=== PATIENT | female | born 1960 | race Caucasian/White ===

== ENCOUNTER 2016-05-18 11:55 | Emergency (ER) | payer BC ==
[~2016-05-18] VITALS: Ht 162.6 cm; Wt 84.1 kg
[~2016-05-18 11:55] MED LIST: ATV/2 PO; CHOL1TAB42 PO; CRAN1CAP15 PO; MULTTAB58 PO; TRAZ50TA35 PO
[2016-05-18 11:58] VITALS: TEMP 36.7; Ht 162.6 cm; Wt 84.1 kg
[2016-05-18] MEDS ORDERED: ALBUT/IPRATROP 3MG/0.5MG NEB 3 ML VIAL INH STA (12:19)
[2016-05-18] MEDS ORDERED: DEXT1SYP PO (12:31)
[2016-05-18] MEDS ORDERED: CLR10 PO (12:31)
[2016-05-18 12:54] LABS: BASO % 0.3 %; BASO ABS # 0.02 K/uL (0-0.2); COMPLETE YES; EOS % 1.3 %; HEMATOCRIT 43.2 % (37-47); IG% 0.1 %; LYMPH ABS # 1.68 K/uL (1.2-3.4); MEAN CELL VOLUME 88.2 fL (80-100); MEAN CORPUSCULAR HEMOGLOBIN 30.2 pg (25-34); MEAN CORPUSCULAR HGB CONC 34.3 g/dl (32-36); MEAN PLATELET VOLUME 10.8 fL (7.4-10.4); MONO % 4.6 %; NEUT % 72.7 %; PLATELET COUNT 210 K/uL (130-400)
[2016-05-18 13:06] LABS: INR 1.1 (0.9-1.1); PARTIAL THROMBOPLASTIN RATIO 1.1; PROTHROMBIN TIME (PATIENT) 11.3 SECONDS (9.0-12.0)
[2016-05-18 13:13] LABS: CALCIUM 9.1 mg/dl (8.5-10.1); CREATININE 1.5 mg/dl (0.60-1.20); POTASSIUM 3.9 mmol/L (3.5-5.1)
[2016-05-18 13:23] LABS: THYROID STIMULATING HORMONE 0.997 uIu/ml (0.300-4.500)
--- NOTE | 2016-05-18 13:46 | DIAGNOSTIC IMAGING REPORT ---
CHEST 2 VIEWS ROUTINE CLINICAL HISTORY: Chest pain and shortness of breath. COMPARISON STUDY: Chest radiograph April 29, 2015. FINDINGS: There are median sternotomy wires. There is no pneumothorax or pleural effusion. There is no consolidation to suggest pneumonia and there is no evidence of pulmonary edema. A calcified lingular granuloma is again noted. The appearance of the chest is unchanged. There are cholecystectomy clips. IMPRESSION: No acute cardiopulmonary findings. Electronically signed by: Bertin Wheat M.D. 05/18/2016 1:44 PM Dictated Date/Time: 05/18/2016 1:43 PM
--- NOTE | 2016-05-18 14:21 | EMERGENCY ROOM VISIT NOTE ---
ED Visit Note First contact with patient: 12:04 This Patient was discussed with the physician nursing home assistant administrator, Jamil Stahl PA-C. The pertinent historical and physical exam findings were confirmed. I agree with the studies ordered and with the interpretations of these studies. I agree with the disposition and care plan.
[2016-05-18] MEDS ORDERED: METH4PAK PO (15:18)
[2016-05-18] MEDS ORDERED: DOXY100C PO (15:18)
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
[2016-05-18 15:24] VITALS: BP 139/73; PULSE 72; O2SAT 99
[2016-11-01] MEDS ORDERED: VNTHFA/IN INH (12:31)
== END 2016-05-18 15:25 | disposition home or self-care (01) ==
LOC: C.EDB 11:57
DX: R07.89 Other chest pain (principal); R06.02 Shortness of breath; I42.4 Endocardial fibroelastosis; Q21.1 Atrial septal defect; Z82.49 Family history of ischemic heart disease and other diseases of the circulatory system

== ENCOUNTER 2016-11-01 19:26 | Inpatient (IN) | payer BC ==
[~2016-11-01] VITALS: Ht 162.6 cm; Wt 77.2 kg
[~2016-11-01 19:26] MED LIST changes: +CLR10 PO; +DEXT1SYP PO; +VNTHFA/IN INH
[2016-11-01 20:06] LABS: BASO % 0.3 %; BASO ABS # 0.02 K/uL (0-0.2); COMPLETE YES; EOS % 3.3 %; HEMATOCRIT 43.7 % (37-47); IG% 0.3 %; LYMPH % 28.4 %; LYMPH ABS # 2.07 K/uL (1.2-3.4); MEAN CELL VOLUME 90.9 fL (80-100); MEAN CORPUSCULAR HEMOGLOBIN 29.3 pg (25-34); MEAN CORPUSCULAR HGB CONC 32.3 g/dl (32-36); MEAN PLATELET VOLUME 10.9 fL (7.4-10.4); MONO % 6.6 %; NEUT % 61.1 %; PLATELET COUNT 202 K/uL (130-400); RED BLOOD COUNT 4.81 M/uL (4.2-5.4); WHITE BLOOD COUNT 7.29 K/uL (4.8-10.8)
--- NOTE | 2016-11-01 20:20 | DIAGNOSTIC IMAGING REPORT ---
HEAD WITHOUT CONTRAST (CT) CT DOSE: 537.48 mGy.cm HISTORY: Mental status change h/o TIAs, L sided facial/UE/LE numbness TECHNIQUE: Multiaxial CT images of the head were performed without the use of intravenous contrast. A dose lowering technique was utilized adhering to the principles of ALARA. Comparison: 11/20/2012 Findings: The paranasal sinuses and mastoid air cells are clear. The calvarium and skull base are intact. The ventricles and sulci are within normal limits. There is no mass, hematoma, midline shift, or acute infarct. Impression: No acute intracranial abnormality. The above report was generated using voice recognition software. It may contain grammatical, syntax or spelling errors. Electronically signed by: Randy Hayes M.D. 11/01/2016 8:19 PM Dictated Date/Time: 11/01/2016 8:19 PM
[2016-11-01 20:21] LABS: BUN/CREATININE RATIO 21.7 (10-20); CALCIUM 8.9 mg/dl (8.5-10.1); CREATININE 0.81 mg/dl (0.60-1.20); POTASSIUM 3.5 mmol/L (3.5-5.1)
[2016-11-01 20:22] LABS: PARTIAL THROMBOPLASTIN RATIO 1.1; PROTHROMBIN TIME (PATIENT) 11.2 SECONDS (9.0-12.0)
[2016-11-01] MEDS ORDERED: ATV2 PO (20:26)
--- NOTE | 2016-11-01 20:46 | DIAGNOSTIC IMAGING REPORT ---
CHEST ONE VIEW PORTABLE CLINICAL HISTORY: CHEST PAIN dyspnea COMPARISON STUDY: 05/18/2016 FINDINGS: The bones soft tissues and hemidiaphragms are normal. The cardiomediastinal silhouette is normal. The lungs are clear. The pulmonary vasculature is normal. Prior median sternotomy IMPRESSION: No acute process The above report was generated using voice recognition software. It may contain grammatical, syntax or spelling errors. Electronically signed by: Randy Hayes M.D. 11/01/2016 8:44 PM Dictated Date/Time: 11/01/2016 8:44 PM
[2016-11-01 21:05] LABS: LYME DISEASE AB IGG NEG (NEG); LYME DISEASE AB IGM NEG (NEG)
[2016-11-01] MEDS ORDERED: ASPIRIN 324 MG CHEW PO STA (21:07)
--- NOTE | 2016-11-01 21:55 | EMERGENCY ROOM VISIT NOTE ---
History Report prepared by Lorraine: Parth Servin Under the Supervision of: Dr. Aditya Up M.D. First contact with patient: 19:33 Chief Complaint: CHEST PAIN Stated Complaint: LT SIDE UPPER CHEST AND ARM NUMBNESS, CHEST PAIN History of Present Illness The patient is a 56 year old white female with a past medical history of multiple TIAs who presents to the ED with a cc of resolved left sided tingling beginning five hours ago. Tingling began in her left face and moves down her side. Positive nausea, "pinching" chest pain, resolved slurred speech and upper and lower back pain. Speech slur and tingling resolved after about 30 minutes. Was seen by PCP for a similar episode three weeks ago. Negative SOB. No recent trauma or falls. No smoking or drug use. No history of blood clots. Drove to [place] two weeks ago, otherwise denies recent prolonged travel. Initially attributed her symptoms to anxiety. Notes a rash to her leg, but does not recall seeing a tick or bug bite. Source of History: patient Onset: Five hours ago Position: other (left side) Symptom Intensity: 30 minutes long Quality: other (tingling) Timing: resolved Associated Symptoms: + chest pain ("pinching"), + nausea, + back pain ( upper and lower), + rash, No SOB Note: Additional symptoms: resolved speech slur. Review of Systems See HPI for pertinent positives and negatives. A total of ten systems were reviewed and were otherwise negative. Past Medical & Surgical Medical Problems: (1) Kidney stone (2) Numbness and tingling of left side of face (3) Papillary fibroelastoma (4) PFO (patent foramen ovale) Surgical Problems: (1) History of hysterectomy (2) Hx of appendectomy (3) Hx of cholecystectomy Family History FH: heart disease FHx: gallbladder disease Kidney stones Social History Smoking Status: Never Smoker Alcohol Use: none Drug Use: none Marital Status: Housing Status: lives alone Occupation Status: employed Current/Historical Medications Scheduled Lorazepam (Lorazepam), 2 MG PO HS Scheduled PRN Albuterol Hfa (Ventolin Hfa), 2-4 PUFFS INH Q6H PRN for SOB/Wheezing Allergies Coded Allergies: Penicillins (Verified Allergy, Mild, 05/18/16) Sulfa Drugs (Verified Allergy, Mild, 05/18/16) Cephalosporins (Verified Allergy, Unknown, ., 05/18/16) Ciprofloxacin (Verified Allergy, Unknown, MUSCLE SPASMS, 05/18/16) Escitalopram (Verified Allergy, Unknown, UNKNOWN, 05/18/16) Morphine (Verified Allergy, Unknown, agitation, 05/18/16) Physical Exam Vital Signs Date Time Temp Pulse Resp B/P (MAP) Pulse Ox O2 Delivery O2 Flow Rate FiO2 11/01/16 23:24 58 18 117/67 97 Room Air 11/01/16 22:39 Room Air 11/01/16 22:38 60 18 132/76 97 Room Air 11/01/16 21:27 47 18 123/74 96 Room Air 11/01/16 20:03 97 Room Air 11/01/16 20:03 97 Room Air 11/01/16 19:42 50 11/01/16 19:28 36.9 62 18 164/89 99 Room Air Physical Exam GENERAL: Awake, alert, well-appearing, NAD HENT: Normocephalic, atraumatic. EYES: Normal conjunctiva. Sclera non-icteric. NECK: Supple. No nuchal rigidity. FROM. RESPIRATORY: CTAB, no rhonchi, wheezing, crackles CARDIAC: RRR, no MRG ABDOMEN: Soft, NTND, BS+ MSK: No chest wall TTP, no LE edema NEURO: GCS 15, CN 2-12 intact, moves all 4s on command. Good finger to nose. No drift. 5/5 UE and LE strength. Good heel to mccoy. No focal motor deficit at this time. SKIN: No jaundice noted. Blanching 2 cm area of redness to the posterior left leg. No calf pain. No swelling. Medical Decision & Procedures ER Provider Diagnostic Interpretation: Radiology results as stated below per my review and radiologist interpretation: HEAD WITHOUT CONTRAST (CT) Findings: The paranasal sinuses and mastoid air cells are clear. The calvarium and skull base are intact. The ventricles and sulci are within normal limits. There is no mass, hematoma, midline shift, or acute infarct. Impression: No acute intracranial abnormality. The above report was generated using voice recognition software. It may contain grammatical, syntax or spelling errors. Electronically signed by: Randy Hayes M.D. CHEST ONE VIEW PORTABLE FINDINGS: The bones soft tissues and hemidiaphragms are normal. The cardiomediastinal silhouette is normal. The lungs are clear. The pulmonary vasculature is normal. Prior median sternotomy IMPRESSION: No acute process The above report was generated using voice recognition software. It may contain grammatical, syntax or spelling errors. Electronically signed by: Randy Hayes M.D. 11/01/2016 8:44 PM Laboratory Results 11/01/16 19:50 Red Blood Count 4.81, Mean Corpuscular Volume 90.9, Mean Corpuscular Hemoglobin 29.3, Mean Corpuscular Hemoglobin Concent 32.3, Mean Platelet Volume 10.9, Neutrophils (%) (Auto) 61.1, Lymphocytes (%) (Auto) 28.4, Monocytes (%) (Auto) 6.6, Eosinophils (%) (Auto) 3.3, Basophils (%) (Auto) 0.3, Neutrophils # (Auto) 4.46, Lymphocytes # (Auto) 2.07, Monocytes # (Auto) 0.48, Eosinophils # (Auto) 0.24, Basophils # (Auto) 0.02 11/01/16 19:50 Test 11/01/16 19:50 11/01/16 19:58 White Blood Count 7.29 K/uL (4.8-10.8) Red Blood Count 4.81 M/uL (4.2-5.4) Hemoglobin 14.1 g/dL (12.0-16.0) Hematocrit 43.7 % (37-47) Mean Corpuscular Volume 90.9 fL (80-100) Mean Corpuscular Hemoglobin 29.3 pg (25-34) Mean Corpuscular Hemoglobin Concent 32.3 g/dl (32-36) Platelet Count 202 K/uL (130-400) Mean Platelet Volume 10.9 fL (7.4-10.4) Neutrophils (%) (Auto) 61.1 % Lymphocytes (%) (Auto) 28.4 % Monocytes (%) (Auto) 6.6 % Eosinophils (%) (Auto) 3.3 % Basophils (%) (Auto) 0.3 % Neutrophils # (Auto) 4.46 K/uL (1.4-6.5) Lymphocytes # (Auto) 2.07 K/uL (1.2-3.4) Monocytes # (Auto) 0.48 K/uL (0.11-0.59) Eosinophils # (Auto) 0.24 K/uL (0-0.5) Basophils # (Auto) 0.02 K/uL (0-0.2) RDW Standard Deviation 45.2 fL (36.4-46.3) RDW Coefficient of Variation 13.6 % (11.5-14.5) Immature Granulocyte % (Auto) 0.3 % Immature Granulocyte # (Auto) 0.02 K/uL (0.00-0.02) Prothrombin Time 11.2 SECONDS (9.0-12.0) Prothromb Time International Ratio 1.0 (0.9-1.1) Activated Partial Thromboplast Time 28.0 SECONDS (21.0-31.0) Partial Thromboplastin Ratio 1.1 Anion Gap 8.0 mmol/L (3-11) Est Creatinine Clear Calc Drug Dose 80.8 ml/min Estimated GFR () 95.4 Estimated GFR (Non- 82.3 BUN/Creatinine Ratio 21.7 (10-20) Calcium Level 8.9 mg/dl (8.5-10.1) Total Bilirubin 0.7 mg/dl (0.2-1) Direct Bilirubin 0.2 mg/dl (0-0.2) Aspartate Amino Transf (AST/SGOT) 19 U/L (15-37) Alanine Aminotransferase (ALT/SGPT) 19 U/L (12-78) Alkaline Phosphatase 82 U/L (45-117) Total Protein 6.8 gm/dl (6.4-8.2) Albumin 3.7 gm/dl (3.4-5.0) Lipase 112 U/L (73-393) Lyme Disease IgG Antibody NEG (NEG) Lyme Disease IgM Antibody NEG (NEG) Bedside Troponin I < 0.030 ng/ml (0-0.045) Laboratory results reviewed by me Medications Administered Medications (Trade) Dose Ordered Sig/Viv Route Start Time Stop Time Status Last Admin Dose Admin Aspirin (Aspirin Chew) 324 mg NOW STAT PO 11/01/16 21:07 11/01/16 21:08 DC 11/01/16 21:13 324 MG ECG Indication: chest pain Rate (beats per minute): 53 Rhythm: sinus bradycardia Findings: T-wave inversion (Lead I and AVL. ), other (No other STS changes or TWI. ) Comparison ECG Date: May 18, 2016 Change: no significant change ED Course 1950: The patient was evaluated in room B9. A complete history and physical exam was performed. 2139: Upon reexamination, the patient was resting comfortably. I discussed the test results and treatment plan with her. The patient will be evaluated for further management. Medical Decision The patient is a 56 year old white female with a past medical history of multiple TIAs who presents to the ED with a cc of persistent left sided tingling beginning five hours ago. Differential diagnosis: Etiologies such as metabolic, infection, hypo/hyperglycemia, electrolyte abnormalities, cardiac sources, intracerebral event, toxicologic, neurologic, as well as others were entertained. Patient was seen and evaluated at the bedside. Patient did complain of some left-sided numbness to the face, left upper extremity, left lower extremity. Patient states that this was transient. This lasted approximately 30-45 minutes. Patient was well outside the window for TPA and the patient's symptoms had resolved. Patient did complain of some nondescript but sided chest wall tenderness. Patient states that she did have prior history of TIA. Patient had a CT brain as well as additional blood work EKG and a chest x-ray. Patient's EKG did show new T-wave inversions in her high lateral leads. Patient reported negative. Patient's CT brain negative. Patient was given a full dose aspirin. I spoke with the hospitalist who agreed the patient would benefit from further testing. Medication Reconcilliation Current Medication List: was personally reviewed by me Blood Pressure Screening Patient's blood pressure: Elevated blood pressure Blood pressure disposition: Elevated BP felt to be situational Consults Time Called: 2131 Consulting Physician: [facility] [place] Returned Call: [phone] Discussed the patient's case. The patient will be evaluated for further treatment and disposition. Impression Primary Impression: TIA (transient ischemic attack) Additional Impressions: Chest pain Left sided numbness Scribe Attestation The scribe's documentation has been prepared under my direction and personally reviewed by me in its entirety. I confirm that the note above accurately reflects all work, treatment, procedures, and medical decision making performed by me. Departure Information Dispostion Being Evaluated By Hospitalist Referrals Dianna Polanco M.D. (PCP) Patient Instructions My [facility] Problem Qualifiers Primary Impression: TIA (transient ischemic attack) Transient cerebral ischemia type: unspecified Qualified Codes: G45.9 - Transient cerebral ischemic attack, unspecified Additional Impressions: Chest pain Chest pain type: unspecified Qualified Codes: R07.9 - Chest pain, unspecified
--- NOTE | 2016-11-01 22:22 | History and Physical ---
History & Physical Date & Time of Service: Nov 01, 2016 at 22:02 Chief Complaint: Lt Side Upper Chest And Arm Numbness, Chest Pain Primary Care Physician: Maddie Alba History of Present Illness Source: patient, family The patient is a pleasant 56 year old female with a history of cardiac fibroelastoma, PFO, seasonal asthma and reported history of 'mini-strokes' who presents to the ED with sudden onset and progressive numbness and tingling. She states that symptoms started at approximately 2:30 pm this afternoon. She states she got a tightness/squeezing in the left side her chest and had radiating numbness/tingling to the left side of her face. Over the course of the afternoon the tingling progressed down her arm and to her hand by approximately 5:30 pm today and then an hour later, she felt the numbness extending down her left leg to her foot. She states feeling slightly weak in the left lower extremity and her foot dragging. Her symptoms lasted a total of an hour after which shes notes that they started to improve and were nearly gone by 6:30 pm Her daughter accompanies her and states that she though the may have had a little difficulty findings words for a couple moments but there was no obvious slurring of speech or difficulty with comprehension. Currently she states having a very minor discomfort in her left chest but her symptoms are nearly all resolved. She states she still feels a very mild tingling in the numbness in the left-side of her face. The patient initially attributed symptoms to anxiety. The patient reports that these symptoms are not new, but her current episode today was the worst in that it went all the way to the legs and the numbness/tingling was much more intense initially. These occur occasionally every few months, but the last episode was 3 weeks ago. At that time, she notes that she had some left sided tingling in the left chest that radiates to jaw and down to the left arm. She describes it is a tingling/pinching. It lasted about an hour. She notes that on these occasions there is some slight radiation to the feet but the numbness/tingling feels less severe. She usually attributes these episodes to anxiety. She reports having been diagnosed with a cardiac fibroelastoma in 2012 on echocardiogram. This was surgically corrected at [facility]. She states that she has been told that this may have caused 'mini strokes' in the past but does not recall being evaluated from a neurological standpoint. She denies seeing a neurologist in the past. Currently she denies chest pain, shortness of breath, coughing and wheezing. Notes a general exhaustion. No focal symptoms. Denies any slurred speech or difficulty swallowing. No ringing in the ears, no dizziness. In the ED CT brain and x-ray of the chest were negative. There no obvious abnormalities on lab work. She was given 324 mg ASA. Past Medical/Surgical History Past Medical History - History of Kidney Stones - Fibroelastoma - Seasonal asthma (2) Papillary fibroelastoma Status: Resolved (3) PFO (patent foramen ovale) Status: Chronic Surgical Problems: (1) History of hysterectomy Status: Chronic (2) Hx of appendectomy Status: Chronic (3) Hx of cholecystectomy Status: Chronic Family History FH: heart disease FHx: gallbladder disease Kidney stones Social History Smoking Status: Former Smoker Smokeless Tobacco Use: No Alcohol Use: occasionally (1 bottle/week) Drug Use: none Housing status: lives alone Occupational Status: employed (works at [employer]) Immunizations History of Influenza Vaccine: Yes Influenza Vaccine Date: Nov 29, 2012 History of Tetanus Vaccine?: Yes History of Pneumococcal: Yes Pneumococcal Date: Jan 17, 2012 History of Hepatitis B Vaccine: Yes Hepatitis Immunization Date: Jan 16, 2006 Multi-Drug Resistant Organisms History of MDRO: No Allergies Coded Allergies: Penicillins (Verified Allergy, Mild, 05/18/16) Sulfa Drugs (Verified Allergy, Mild, 05/18/16) Cephalosporins (Verified Allergy, Unknown, ., 05/18/16) Ciprofloxacin (Verified Allergy, Unknown, MUSCLE SPASMS, 05/18/16) Escitalopram (Verified Allergy, Unknown, UNKNOWN, 05/18/16) Morphine (Verified Allergy, Unknown, agitation, 05/18/16) Home Medications Scheduled Lorazepam (Lorazepam), 2 MG PO HS Scheduled PRN Albuterol Hfa (Ventolin Hfa), 2-4 PUFFS INH Q6H PRN for SOB/Wheezing Review of Systems A 10 point review of systems was negative unless stated above. Physical Exam Vital Signs Date Time Temp Pulse Resp B/P (MAP) Pulse Ox O2 Delivery O2 Flow Rate FiO2 11/01/16 21:27 47 18 123/74 96 Room Air 11/01/16 20:03 97 Room Air 11/01/16 20:03 97 Room Air 11/01/16 19:42 50 11/01/16 19:28 36.9 62 18 164/89 99 Room Air General Appearance: WD/WN, no apparent distress Head: normocephalic, atraumatic Eyes: normal inspection, EOMI ENT: hearing grossly normal, pharynx normal Neck: supple, no adenopathy, no JVD Respiratory/Chest: lungs clear, no respiratory distress, + pertinent finding Cardiovascular: regular rate, rhythm, no gallop, no murmur, + bradycardia, + pertinent finding (well healed midline thoracotomy scar) Abdomen/GI: normal bowel sounds, non tender, soft Back: no CVA tenderness, no muscle spasm Extremities/Musculoskelatal: normal inspection, no calf tenderness, no pedal edema Neurologic/Psych: alert, normal mood/affect, oriented x 3, + sensory deficit ( mild numbness to left maxillary area and chin; mild numbness to index finger of left hand), + pertinent finding (grossly normal motor exam; strength 5/5 in all extremities; no pronator drift, normal finger-nose testing) Skin: normal color, warm/dry, no rash Lymphatic: no adenopathy Diagnostics Laboratory Results Results Past 24 Hours Test 11/01/16 19:50 11/01/16 19:58 Range/Units White Blood Count 7.29 4.8-10.8 K/uL Red Blood Count 4.81 4.2-5.4 M/uL Hemoglobin 14.1 12.0-16.0 g/dL Hematocrit 43.7 37-47 % Mean Corpuscular Volume 90.9 80-100 fL Mean Corpuscular Hemoglobin 29.3 25-34 pg Mean Corpuscular Hemoglobin Concent 32.3 32-36 g/dl Platelet Count 202 130-400 K/uL Mean Platelet Volume 10.9 7.4-10.4 fL Neutrophils (%) (Auto) 61.1 % Lymphocytes (%) (Auto) 28.4 % Monocytes (%) (Auto) 6.6 % Eosinophils (%) (Auto) 3.3 % Basophils (%) (Auto) 0.3 % Neutrophils # (Auto) 4.46 1.4-6.5 K/uL Lymphocytes # (Auto) 2.07 1.2-3.4 K/uL Monocytes # (Auto) 0.48 0.11-0.59 K/uL Eosinophils # (Auto) 0.24 0-0.5 K/uL Basophils # (Auto) 0.02 0-0.2 K/uL RDW Standard Deviation 45.2 36.4-46.3 fL RDW Coefficient of Variation 13.6 11.5-14.5 % Immature Granulocyte % (Auto) 0.3 % Immature Granulocyte # (Auto) 0.02 0.00-0.02 K/uL Prothrombin Time 11.2 9.0-12.0 SECONDS Prothromb Time International Ratio 1.0 0.9-1.1 Activated Partial Thromboplast Time 28.0 21.0-31.0 SECONDS Partial Thromboplastin Ratio 1.1 Sodium Level 142 136-145 mmol/L Potassium Level 3.5 3.5-5.1 mmol/L Chloride Level 108 98-107 mmol/L Carbon Dioxide Level 26 21-32 mmol/L Anion Gap 8.0 3-11 mmol/L Blood Urea Nitrogen 18 7-18 mg/dl Creatinine 0.81 0.60-1.20 mg/dl Est Creatinine Clear Calc Drug Dose 80.8 ml/min Estimated GFR () 95.4 Estimated GFR (Non- 82.3 BUN/Creatinine Ratio 21.7 10-20 Random Glucose 81 70-99 mg/dl Calcium Level 8.9 8.5-10.1 mg/dl Total Bilirubin 0.7 0.2-1 mg/dl Direct Bilirubin 0.2 0-0.2 mg/dl Aspartate Amino Transf (AST/SGOT) 19 15-37 U/L Alanine Aminotransferase (ALT/SGPT) 19 12-78 U/L Alkaline Phosphatase 82 45-117 U/L Total Protein 6.8 6.4-8.2 gm/dl Albumin 3.7 3.4-5.0 gm/dl Lipase 112 73-393 U/L Lyme Disease IgG Antibody NEG NEG Lyme Disease IgM Antibody NEG NEG Bedside Troponin I < 0.030 0-0.045 ng/ml Diagnostic Radiology HEAD WITHOUT CONTRAST (CT) CT DOSE: 537.48 mGy.cm HISTORY: Mental status change h/o TIAs, L sided facial/UE/LE numbness TECHNIQUE: Multiaxial CT images of the head were performed without the use of intravenous contrast. A dose lowering technique was utilized adhering to the principles of ALARA. Comparison: 11/20/2012 Findings: The paranasal sinuses and mastoid air cells are clear. The calvarium and skull base are intact. The ventricles and sulci are within normal limits. There is no mass, hematoma, midline shift, or acute infarct. Impression: No acute intracranial abnormality. The above report was generated using voice recognition software. It may contain grammatical, syntax or spelling errors. Electronically signed by: Randy Hayes M.D. 11/01/2016 8:19 PM Dictated Date/Time: 11/01/2016 8:19 PM CXR normal EKG Sinus Rafa New T wave inversions in I and AVL Impression Assessment and Plan 56 year old female with chest discomfort accompanied by neurological symptoms to the left face, and left extremities. She self-reports diagnosis of mini-strokes but I did not see if any formal diagnosis of TIA has previously been made. Review of old records indicates she has had a fibroelastoma diagnosed on echocardiogram in the past that [place] [facility] [place] It would be prudent to re-evaluate her with particular attention to a potential embolic phenomena. Our plan for her is as follows. Left Sided Face, Arm and Leg Numbness and Tingling - Evaluation for CVA - CT brain negative - Order: MRI brain combo, MRA neck combo, MRA head without contrast; all studies pending - Echocardiogram to evaluate for valvular abnormalities or possible regrowth of fibroelastoma - Neurology consultation ordered - Neuro-checks q 4 hours - Nursing evaluation for dysphagia; advance diet as tolerated if normal Mild Intermittent Asthma - Albuterol PRN Anxiety/Insomnia - Lorazepam 2 mg scheduled HS, per home medications DVT Prophylaxis - SCD Knee, ESTHER Hose - Lovenox 4 mg daily Code Status - Level I Full Code Disposition - Telemetry - OT and PT evaluations Attending Addendum: I have physically seen and examined this patient, have directed the resident's medical activities, and agree with the H&P as noted above with the following exceptions as noted. The patient is awake, alert and oriented 3, well-developed and well-nourished , normocephalic and atraumatic, lying in bed and in no acute distress. HEENT--PERRL, EOMI, mucous membranes and oropharynx normal. Neck--supple, no JVD or bruits, thyroid normal, trachea midline, no adenopathy. Heart--variable heart rate in the mid 40s to the low 70s, primarily in the upper 40s to low 50s. Systolic murmur. No rubs or gallops. Lungs--clear bilaterally with good air movement, no respiratory distress, no accessory muscle use. Abdomen--normal bowel sounds and soft, nontender and nondistended, no hernias or masses, no organomegaly. Extremities--no cyanosis, clubbing or edema. There are good distal pulses b/l. Dermatologic--normal skin turgor, normal color, warm and dry, no abnormal lymph nodes, no rash. Neurologic--cranial nerves II through XII grossly intact. Mild numbness to left maxillary area, index finger left hand. Motor and cerebellar exam normal Rheumatologic--normal range of motion, nontender, muscles and joints. Psychiatric--normal affect. Assessment and Plan: Left side face, arm and leg numbness and tingling-- The patient will be admitted to telemetry for serial cardiac enzymes, cardiac rhythm monitoring and a 2-D echocardiogram with Dopplers. CT of the head without acute findings. Order MRI brain combo, MRA neck combo, an MRA of the head without contrast. Neurochecks every 4 hours. Consult neurology. Consult cardiology. Consult OT and PT. Level of Care Telemetry Advanced Directives Existing Advance Directive: No Existing Living Will: No Existing Power of Gal[place] Boy: No Resuscitation Status FULL RESUSCITATION VTE Prophylaxis Risk Level: Moderate Given or contraindicated: SCD's Social Service Consult None Apply
[2016-11-01] MEDS ORDERED: POLYETHYLENE (MIRALAX) 17 GM PACK PO PRN (22:30)
[2016-11-01] MEDS ORDERED: ACETAMINOPHEN 325 MG TAB PO PRN (22:30)
[2016-11-01] MEDS ORDERED: ONDANSETRON INJ 2 MG/ML 2 ML VIAL IV PRN (22:30)
[2016-11-01] MEDS ORDERED: PHARMACIST DISCHARGE MED REC CONSULT PRN (22:30)
[2016-11-01] MEDS ORDERED: MAGNESIUM HYDROXIDE SUSP 30 ML UDC PO PRN (22:30)
[2016-11-01] MEDS ORDERED: ALUMINUM/MAGNESIUM/SIMETH (MAALOX MAX) 30 ML UDC PO PRN (22:30)
[2016-11-01 22:39] VITALS: Ht 162.6 cm; Wt 77.2 kg
[2016-11-01] MEDS ORDERED: ALBUTEROL HFA 8 GM INHALER INH PRN (23:00)
[2016-11-01] MEDS ORDERED: LORAZEPAM 1 MG TAB PO ONE (23:00)
[2016-11-01 23:24] VITALS: O2SAT 97
[2016-11-02] VITALS (7 sets, daily range): BP systolic 102–120; BP diastolic 67–76; PULSE 49–83; TEMP 36.4–36.8; O2SAT 96–98
[2016-11-02] MEDS ORDERED: GADAVIST IV PRN (01:45)
[2016-11-02 04:54] LABS: BASO % 0.3 %; BASO ABS # 0.02 K/uL (0-0.2); COMPLETE YES; EOS % 3.8 %; HEMATOCRIT 43.6 % (37-47); IG% 0.2 %; LYMPH % 32.7 %; LYMPH ABS # 1.98 K/uL (1.2-3.4); MEAN CELL VOLUME 90.5 fL (80-100); MEAN CORPUSCULAR HEMOGLOBIN 30.3 pg (25-34); MEAN CORPUSCULAR HGB CONC 33.5 g/dl (32-36); MONO % 7.9 %; NEUT % 55.1 %; PLATELET COUNT 172 K/uL (130-400); RED BLOOD COUNT 4.82 M/uL (4.2-5.4); WHITE BLOOD COUNT 6.05 K/uL (4.8-10.8)
[2016-11-02 05:14] LABS: BLOOD UREA NITROGEN 16 mg/dl (7-18); BUN/CREATININE RATIO 18.8 (10-20); CALCIUM 8.5 mg/dl (8.5-10.1); CARBON DIOXIDE 29 mmol/L (21-32); CHLORIDE 110 mmol/L (98-107); CREATININE 0.83 mg/dl (0.60-1.20); GLUCOSE 99 mg/dl (70-99); POTASSIUM 3.5 mmol/L (3.5-5.1); SODIUM 145 mmol/L (136-145)
[2016-11-02 05:20] LABS: CHOLESTEROL 145 mg/dl (0-200); CHOLESTEROL/HDL RATIO 2.5; CKMB/CK RATIO 1.3 (0-3.0); HDL CHOLESTEROL 57 mg/dl; LDL CHOLESTEROL CALCULATED 75 mg/dl; TRIGLYCERIDES 64 mg/dl (0-150); VERY LOW DENSITY LIPOPROT CALC 13 mg/dl
[2016-11-02] MEDS ORDERED: HEPARIN SOD 5000 UNIT/0.5 ML CARP SQ SCH (06:00)
--- NOTE | 2016-11-02 07:08 | DIAGNOSTIC IMAGING REPORT ---
MRA HEAD WITHOUT CONTRAST HISTORY: 56 years-old Female Stroke - Attention to [place] acute strokelike symptoms with left upper and lower extremity numbness COMPARISON: MRI of the brain of same day, CT head 11/01/2016 TECHNIQUE: MRA of the head was obtained utilizing 3-D [id number] sequencing with MIP reformats. FINDINGS: Bilateral internal carotid arteries are widely patent. Normal and widely patent M1 branches with normal appearing trifurcation seen. Bilateral A1 branches are widely patent. Anterior communicating artery is unremarkable. The left vertebral artery is dominant. The right vertebral artery is diminutive in size, notably the V4 segment. Basilar artery and bilateral posterior cerebral arteries appear patent. No aneurysm, proximal branch occlusion or high-grade stenosis identified. IMPRESSION: 1. No aneurysm, definite high-grade stenosis or proximal branch occlusion. 2. 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 The above report was generated using voice recognition software. It may contain grammatical, syntax or spelling errors. Electronically signed by: Chad Arcos M.D. 11/02/2016 7:07 AM Dictated Date/Time: 11/02/2016 6:57 AM
[2016-11-02 07:10] LABS: ESTIMATED AVERAGE GLUCOSE 111 mg/dl; HA1C FLAG Normal (Normal)
--- NOTE | 2016-11-02 07:14 | DIAGNOSTIC IMAGING REPORT ---
NECK MRA HISTORY: Slurred speech. Confusion. Stroke TECHNIQUE: [id number] and gadolinium-enhanced MRA of the neck was performed both before and after the intravenous administration of contrast. All measurements were calculated based on NASCET criteria. COMPARISON STUDY: Carotid Doppler 11/21/2012. FINDINGS: The aortic arch and proximal great vessels are widely patent. There is no significant stenosis, occlusion, or dissection identified within the bilateral common carotid, internal carotid, or vertebral arteries. Hypoplastic distal right vertebral artery. IMPRESSION: No significant stenosis, occlusion, or dissection identified within the carotid or vertebral arteries. Electronically signed by: Ez Cox M.D. 11/02/2016 7:12 AM Dictated Date/Time: 11/02/2016 7:09 AM
--- NOTE | 2016-11-02 07:16 | DIAGNOSTIC IMAGING REPORT ---
BRAIN COMBO CLINICAL HISTORY: 56 years-old Female presenting with Stroke, numbness in the left arm, left leg and left jaw, slurred speech, confusion, blurry vision started at 2:30 PM on Wednesday. TECHNIQUE: Multisequence, multiplanar MR imaging of the brain was performed before and after the administration of intravenous contrast. IV contrast: 7.9 mL of Gadavist. COMPARISON: PET/CT performed on 11/01/2016. FINDINGS: Ventricles and sulci normal in size. Brain parenchyma normal in appearance with preserved francis-white differentiation. No mass effect or midline shift. No restricted diffusion to suggest acute ischemia. No hemorrhage. No extra-axial fluid collection. T2 skull base flow voids preserved. Bone marrow signal intensity within the calvarium within normal limits. IMPRESSION: 1. No acute intracranial abnormality. Electronically signed by: Maxwell Harley M.D. 11/02/2016 7:14 AM Dictated Date/Time: 11/02/2016 7:11 AM
[2016-11-02] MEDS: ASPIRIN 81 MG ECTAB PO SCH (07:33)
[2016-11-02] MEDS: ENOXAPARIN 40 MG/0.4 ML SYR SQ SCH (07:34)
--- NOTE | 2016-11-02 09:07 | Neurology Consultation ---
Neurology Consultation Date of Consultation: Nov 02, 2016. Attending Physician: Magdy Choe MD, PhD Primary Care Physician: Maddie Alba Reason for Consultation: TIA History of Present Illness Source: patient, hospital records The patient is a 56-year-old female with a chief complaint of numbness and weakness affecting the left side. She complains of numbness and tingling of the left face, arm, and leg that began acutely, approximately 5 hours prior to her presentation in the emergency department yesterday. The symptoms initially affected the face and arm but rapidly evolved to the left face, arm, and leg. She recalls experiencing some associated weakness or heaviness of the left side as well, especially the leg which she indicated was dragging behind with walking. These symptoms considerably improved within 30 minutes. The weakness has resolved although she continues to report a vague feeling of numbness affecting her left side. The patient also reports having intermittent low-grade headache over the past week or so. She denies a history of migraine, however. She denies experiencing any associated change in vision or vertigo. The patient does report that she experienced a very similar episode approximately 3 weeks ago. She also indicates that she has had these symptoms intermittently in the past as well and has attributed them to stress or anxiety. 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 She recalls that prior to the identification of this cardiac tumor she had been having TIA or strokelike episodes very similar to her current presentation. The patient also reports that she had been prescribed daily low-dose aspirin after her cardiac surgery and she had followed regularly with Dr. Guillen, cardiology. She also indicates that she eventually discontinued aspirin as this medication was causing extensive bruising. She has not been taking any type of blood thinner or anticoagulant in recent history. A CT of the head completed at the time presentation was unremarkable. No evidence of hemorrhage or acute process. An electrocardiogram reveals sinus bradycardia, 53 bpm. Labs reviewed. CBC unremarkable. Comprehensive metabolic panel unremarkable. Cardiac enzymes negative. Lipid panel normal. Lyme screen negative. A follow-up brain MRI has been completed. I reviewed the images as well as the radiologist's interpretation of this test. There is no evidence of acute or subacute infarct. No significant parenchymal abnormality. MR angiography of the head and neck are unremarkable. 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 An echocardiogram has been completed, results pending at this time. Past Medical/Surgical History Medical Problems: (1) Abdominal pain Status: Acute (2) Chest pain Status: Acute (3) Infected sebaceous cyst Status: Acute (4) Left sided numbness Status: Acute (5) Non-cardiac chest pain Status: Acute (6) SOB (shortness of breath) Status: Acute (7) TIA (transient ischemic attack) Status: Acute Family History There is a family history of coronary artery disease. The patient reports that she has 2 children that get migraine type headaches. Social History Smoking Status: Former smoker Smokeless Tobacco Use: No Alcohol Use: occasionally (1 bottle/week) Drug Use: none Housing Status: lives alone Occupation Status: employed (works at [employer]) Allergies Coded Allergies: Penicillins (Verified Allergy, Mild, 05/18/16) Sulfa Drugs (Verified Allergy, Mild, 05/18/16) Cephalosporins (Verified Allergy, Unknown, ., 05/18/16) Ciprofloxacin (Verified Allergy, Unknown, MUSCLE SPASMS, 05/18/16) Escitalopram (Verified Allergy, Unknown, UNKNOWN, 05/18/16) Morphine (Verified Allergy, Unknown, agitation, 05/18/16) Current Inpatient Medications Current Inpatient Medications Medications (Trade) Dose Ordered Sig/Viv Route Start Time Stop Time Status Last Admin Dose Admin Acetaminophen (Tylenol Tab) 650 mg Q4H PRN PO 11/01/16 22:30 12/01/16 22:29 Al Hydrox/Mg Hydrox/Simethicone (Maalox Max Susp) 15 ml Q4H PRN PO 11/01/16 22:30 12/01/16 22:29 Magnesium Hydroxide (Milk Of Magnesia Susp) 30 ml Q12H PRN PO 11/01/16 22:30 12/01/16 22:29 Ondansetron HCl (Zofran Inj) 4 mg Q6H PRN IV 11/01/16 22:30 12/01/16 22:29 Polyethylene (Miralax Powder Packet) 17 gm DAILY PRN PO 11/01/16 22:30 12/01/16 22:29 Aspirin (Ecotrin Tab) 81 mg QAM PO 11/02/16 09:00 12/02/16 08:59 11/02/16 07:33 81 MG Miscellaneous Information (Pharmacist Discharge Med Rec Consult) 1 ea UD PRN N/A 11/01/16 22:30 12/01/16 22:29 Lorazepam (Ativan Tab) 2 mg HS PO 11/02/16 21:00 12/02/16 20:59 Albuterol (Ventolin Hfa Inhaler) 2 puffs Q6H PRN INH 11/01/16 23:00 12/01/16 22:59 Enoxaparin Sodium (Lovenox Inj) 40 mg QAM SQ 11/02/16 09:00 12/02/16 08:59 11/02/16 07:34 40 MG Gadobutrol (Gadavist) 7.9 mmol UD PRN IV 11/02/16 01:45 11/06/16 01:44 Review of Systems Constitutional: No fever or chills Eyes: No vision loss or diplopia ENT: No hearing loss or vertigo Cardiovascular: Patient did complain of some mild associated left sided chest pain at presentation Respiratory: No coughing wheezing or shortness of breath Neurological: As per history of present illness Psychiatric: Patient does endorse some feelings of anxiety but denies a history of anxiety disorder or panic attack A full 10 point review of systems was obtained in this patient with pertinent positives and negatives described in the history of present illness and otherwise listed above. All remaining systems reviewed and are negative. Physical Exam Vital Signs (Past 24 Hrs): Date Time Temp Pulse Resp B/P (MAP) Pulse Ox O2 Delivery O2 Flow Rate FiO2 11/02/16 08:00 Room Air 11/02/16 07:22 36.8 52 18 120/74 (89) 98 Room Air 11/02/16 04:00 36.5 55 18 111/70 (84) 98 Room Air 11/02/16 04:00 Room Air 11/02/16 01:10 36.6 83 18 115/72 (86) 96 Room Air 11/01/16 23:24 58 18 117/67 97 Room Air 11/01/16 22:39 Room Air 11/01/16 22:38 60 18 132/76 97 Room Air 11/01/16 21:27 47 18 123/74 96 Room Air 11/01/16 20:03 97 Room Air 11/01/16 20:03 97 Room Air 11/01/16 19:42 50 11/01/16 19:28 36.9 62 18 164/89 99 Room Air The patient is a well-developed, well-nourished, middle-aged female. She is lying comfortably in bed, no acute distress. She is alert and oriented to person place and time. Recent and remote memory intact. Attention and concentration normal. Patient exhibits a normal spontaneous speech pattern. She is able to name objects and repeat phrases. Patient exhibits an age-appropriate fund of knowledge and normal vocabulary. Visual hernandez full to confrontation. Visual acuity normal. Pupils equal round reactive to light and accommodation. Eye movements normal. There is diminished sensation to light touch and temperature along the left upper, mid face, and lower face. Facial sensation on the right intact. There is normal facial symmetry and strength. No facial droop. Hearing intact to finger rub bilaterally. Palate elevates to midline. Shoulder shrug strength intact bilaterally. Tongue protrudes to midline. Sensory examination reveals a relative deficit to light touch, temperature, and vibration affecting the left upper and lower extremity. No sensory deficit for the right side of the body. Deep tendon reflexes are intact and symmetrical, 2+ for the arms and legs. Plantar responses downgoing bilaterally. There is no dysdiadochokinesia or dysmetria with finger to nose or heel to mccoy bilaterally. Ophthalmoscopic examination reveals normal-appearing optic disks and posterior segments. No papilledema or hemorrhages. Carotid pulses normal bilaterally, no bruits to auscultation. Musculoskeletal examination reveals a normal gait and station. Muscle strength normal for the arms and legs bilaterally, proximally and distally. There is no hemiparesis. Muscle tone normal for the arms and legs bilaterally. No atrophy. No abnormal movements observed. Laboratory Results Past 24 Hours: 11/02/16 04:17 Red Blood Count 4.82, Mean Corpuscular Volume 90.5, Mean Corpuscular Hemoglobin 30.3, Mean Corpuscular Hemoglobin Concent 33.5, Mean Platelet Volume 11.0, Neutrophils (%) (Auto) 55.1, Lymphocytes (%) (Auto) 32.7, Monocytes (%) (Auto) 7.9, Eosinophils (%) (Auto) 3.8, Basophils (%) (Auto) 0.3, Neutrophils # (Auto) 3.33, Lymphocytes # (Auto) 1.98, Monocytes # (Auto) 0.48, Eosinophils # (Auto) 0.23, Basophils # (Auto) 0.02 11/02/16 04:17 Test 11/01/16 19:50 11/01/16 19:58 11/02/16 04:17 Prothrombin Time 11.2 SECONDS (9.0-12.0) Prothromb Time International Ratio 1.0 (0.9-1.1) Activated Partial Thromboplast Time 28.0 SECONDS (21.0-31.0) Partial Thromboplastin Ratio 1.1 Estimated Average Glucose 111 mg/dl Hemoglobin A1c 5.5 % (4.5-5.6) Total Bilirubin 0.7 mg/dl (0.2-1) Direct Bilirubin 0.2 mg/dl (0-0.2) Aspartate Amino Transf (AST/SGOT) 19 U/L (15-37) Alanine Aminotransferase (ALT/SGPT) 19 U/L (12-78) Alkaline Phosphatase 82 U/L (45-117) Total Protein 6.8 gm/dl (6.4-8.2) Albumin 3.7 gm/dl (3.4-5.0) Lipase 112 U/L (73-393) Lyme Disease IgG Antibody NEG (NEG) Lyme Disease IgM Antibody NEG (NEG) Hepatitis C Antibody Screen NEG (NEG) Bedside Troponin I < 0.030 ng/ml (0-0.045) White Blood Count 6.05 K/uL (4.8-10.8) Red Blood Count 4.82 M/uL (4.2-5.4) Hemoglobin 14.6 g/dL (12.0-16.0) Hematocrit 43.6 % (37-47) Mean Corpuscular Volume 90.5 fL (80-100) Mean Corpuscular Hemoglobin 30.3 pg (25-34) Mean Corpuscular Hemoglobin Concent 33.5 g/dl (32-36) Platelet Count 172 K/uL (130-400) Mean Platelet Volume 11.0 fL (7.4-10.4) Neutrophils (%) (Auto) 55.1 % Lymphocytes (%) (Auto) 32.7 % Monocytes (%) (Auto) 7.9 % Eosinophils (%) (Auto) 3.8 % Basophils (%) (Auto) 0.3 % Neutrophils # (Auto) 3.33 K/uL (1.4-6.5) Lymphocytes # (Auto) 1.98 K/uL (1.2-3.4) Monocytes # (Auto) 0.48 K/uL (0.11-0.59) Eosinophils # (Auto) 0.23 K/uL (0-0.5) Basophils # (Auto) 0.02 K/uL (0-0.2) RDW Standard Deviation 45.1 fL (36.4-46.3) RDW Coefficient of Variation 13.6 % (11.5-14.5) Immature Granulocyte % (Auto) 0.2 % Immature Granulocyte # (Auto) 0.01 K/uL (0.00-0.02) Anion Gap 6.0 mmol/L (3-11) Est Creatinine Clear Calc Drug Dose 77.9 ml/min Estimated GFR () 92.7 Estimated GFR (Non- 79.9 BUN/Creatinine Ratio 18.8 (10-20) Calcium Level 8.5 mg/dl (8.5-10.1) Total Creatine Kinase 142 U/L (26-192) Creatine Kinase MB 1.8 ng/ml (0.5-3.6) Creatine Kinase MB Ratio 1.3 (0-3.0) Troponin I < 0.015 ng/ml (0-0.045) Triglycerides Level 64 mg/dl (0-150) Cholesterol Level 145 mg/dl (0-200) HDL Cholesterol 57 mg/dl LDL Cholesterol, Calculated 75 mg/dl VLDL Cholesterol, Calculated 13 mg/dl Cholesterol/HDL Ratio 2.5 Impression This is a 56-year-old female who presents with symptoms suggestive of TIA localizing to the right cerebral hemisphere. Other than mild left-sided numbness on examination (face arm and leg) I do not find any other deficits. She does not have an associated hemiparesis, ataxia, speech deficit, or dysarthria. She does not have an obvious visual field deficit. Her gait is normal. 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 Furthermore, this patient had previously been prescribed daily low- dose aspirin although she subsequently discontinued this treatment due to excessive bruising. Alternatively, a diagnosis of complex migraine with associated vasospasm could be considered as well although is probably much less likely as this patient does not really have an established diagnosis of migraine and does not complain of significant headache. Plan Follow up with results of transthoracic echocardiogram. I would recommend obtaining a consultation with cardiology as well. Depending on the results of the transthoracic echocardiogram, this patient may need a transesophageal echocardiogram to further exclude a cardioembolic source. I agree with aspirin 81 mg per day at this point in time. However, if the above evaluations support cardioembolism, then this patient should be offered anticoagulation. Consultations with physical therapy and occupational therapy would probably be of some value allthough she does not appear to have significant neurological deficits at this time. Please contact me if I may be of further assistance.
[2016-11-02 13:31] LABS: URINE APPEARANCE CLEAR (CLEAR); URINE BILIRUBIN NEG (NEG); URINE COLOR YELLOW; URINE NITRITE NEG (NEG); URINE PH 6.5 (4.5-7.5); URINE SPECIFIC GRAVITY 1.005 (1.000-1.030); UROBILINOGEN NEG (NEG); ZZUR CULT IF INDIC CLEAN CATCH NO
[2016-11-02 13:33] LABS: MAGNESIUM 2.1 mg/dl (1.8-2.4)
[2016-11-02 13:33] LABS: MANUAL MICROSCOPIC REQUIRED? NO; REVIEW REQ? NO
--- NOTE | 2016-11-02 16:02 | ECHOCARDIOGRAM REPORT ---
*NOTICE TO RECEIVING [employer] This information is strictly Confidential and protected under [place] law. [place] law prohibits you from making any further disclosure of this information unless further disclosure is expressly permitted by the written consent of the person to whom it pertains or is authorized by law. A general authorization for the release of medical or other information is not sufficient for this purpose. Hospital accepts no responsibility if the information is made available to any other person, INCLUDING THE PATIENT. Interpretation Summary * Name: ADAN BRAY Study Date: 11/02/2016 06:24 AM BP: 111/70 mmHg * Patient Location: C.2T\S\S229\S\2 HR: 58 * : 1960 (M/d/yyyy) Gender: Female Height: 64 in * Age: 56 yrs Ethnicity: CA Weight: 174 lb * Ordering Physician: Rakan Betancourt * Referring Physician: Self, Referred * Performed By: Lamar Lawrence RCS * * Reason For Study: CEREBRAL ISCHEMIA / EMBOLUS * BSA: 1.8 m2 * -- Conclusions -- * 1. Normal LV size, borderline LV wall thickness. * 2. Normal LV systolic function. LVEF 55-60%. No regional wall motion abnormalities. * 3. Normal RV size and function. * 4. Possible small (0.4 mm) filamentous structure on ventricular aspect of aortic valve. * 5. Trace aortic regurgitation. * 6. Compared with prior study on 11/21/2012: Previously noted filamentous structure is less prominent. Procedure Details * A complete two-dimensional transthoracic echocardiogram was performed (2D, M-mode, Doppler and color flow Doppler). * A saline contrast injection was performed to assess for cardiac shunting. * The injection was performed through an intravenous line in the right arm. * The attending nurse who injected the saline contrast was CARLOS ENRIQUE MCDONALD, CARMEN. * A total of 20 cc of agitated saline was given. Left Ventricle * The left ventricle is grossly normal size. * There is borderline concentric left ventricular hypertrophy. * Ejection Fraction = 55-60%. * No regional wall motion abnormalities noted. Right Ventricle * The right ventricle is grossly normal size. * The right ventricular systolic function is normal as assessed by tricuspid annular plane systolic excursion (TAPSE) (normal >1.5 cm). Atria * The left atrial size is normal. * Right atrial size is normal. * Injection of contrast documented no interatrial shunt. Mitral Valve * The mitral valve is grossly normal. * Mitral stenosis is absent. * There is trace mitral regurgitation. Tricuspid Valve * The tricuspid valve is not well visualized, but is grossly normal. * There is no tricuspid stenosis. * There is mild tricuspid regurgitation. Aortic Valve * The aortic valve opens well. * Possible filamentous structure on ventricular aspect of aortic valve. * Aortic stenosis is absent. * Trace aortic regurgitation. Pulmonic Valve * The pulmonary valve is inadequately visualized, but the Doppler data is adequate for interpretation. * Pulmonic stenosis is absent. * Trace pulmonic valvular regurgitation. Great Vessels * The aortic root and proximal ascending aorta are normal sized. Pericardium/Pleural * There is no pericardial effusion. Great Vessels * Normal inferior vena cava size and collapsability with sniff indicates a normal right atrial pressure of 3 mmHg MMode 2D Measurements and Calculations IVSd 1.1 cm IVSs 1.4 cm LVIDd 4.4 cm LVIDs 3.4 cm LVPWd 0.91 cm LVPWs 1.4 cm IVS/LVPW 1.2 FS 22.5 % EDV(Teich) 88.3 ml ESV(Teich) 48.1 ml EF(Teich) 45.5 % EDV(cubed) 85.9 ml ESV(cubed) 40.0 ml EF(cubed) 53.5 % % IVS thick 23.1 % % LVPW thick 49.9 % LV mass(C)d 152.0 grams LV mass(C)dI 82.5 grams/m\S\2 LV mass(C)s 162.3 grams LV mass(C)sI 88.0 grams/m\S\2 SV(Teich) 40.2 ml SI(Teich) 21.8 ml/m\S\2 SV(cubed) 45.9 ml SI(cubed) 24.9 ml/m\S\2 Ao root diam 2.7 cm Ao root area 5.8 cm\S\2 ACS 2.0 cm LA dimension 2.3 cm LA/Ao 0.84 LVOT diam 2.0 cm LVOT area 3.3 cm\S\2 LVAd ap4 30.4 cm\S\2 LVLd ap4 7.5 cm EDV(MOD-sp4) 100.6 ml EDV(sp4-el) 105.1 ml LVAs ap4 21.1 cm\S\2 LVLs ap4 6.5 cm ESV(MOD-sp4) 55.1 ml ESV(sp4-el) 58.4 ml EF(MOD-sp4) 45.3 % EF(sp4-el) 44.5 % LVAd ap2 34.3 cm\S\2 LVLd ap2 8.3 cm EDV(MOD-sp2) 118.5 ml EDV(sp2-el) 120.9 ml LVAs ap2 20.5 cm\S\2 LVLs ap2 6.6 cm ESV(MOD-sp2) 52.3 ml ESV(sp2-el) 53.9 ml EF(MOD-sp2) 55.9 % EF(sp2-el) 55.4 % LVLd %diff 9.6 % EDV(MOD-bp) 112.1 ml LVLs %diff 1.5 % ESV(MOD-bp) 53.9 ml EF(MOD-bp) 51.9 % SV(MOD-sp4) 45.5 ml SI(MOD-sp4) 24.7 ml/m\S\2 SV(MOD-sp2) 66.2 ml SI(MOD-sp2) 35.9 ml/m\S\2 SV(MOD-bp) 58.2 ml SI(MOD-bp) 31.6 ml/m\S\2 SV(sp4-el) 46.8 ml SI(sp4-el) 25.4 ml/m\S\2 SV(sp2-el) 67.0 ml SI(sp2-el) 36.4 ml/m\S\2 Doppler Measurements and Calculations MV E max olivier 79.8 cm/sec MV A max olivier 39.9 cm/sec MV E/A 2.0 MV P1/2t max olivier 82.8 cm/sec MV P1/2t 85.0 msec MVA(P1/2t) 2.6 cm\S\2 MV dec slope 285.6 cm/sec\S\2 MV dec time 0.27 sec Ao V2 max 127.1 cm/sec Ao max PG 6.5 mmHg Ao max PG (full) 3.7 mmHg EARNEST(V,A) 2.1 cm\S\2 EARNEST(V,D) 2.1 cm\S\2 LV V1 max PG 2.8 mmHg LV V1 max 83.6 cm/sec PA V2 max 103.5 cm/sec PA max PG 4.3 mmHg TR max olivier 197.1 cm/sec
--- NOTE | 2016-11-02 16:40 | Family Medicine Progress Note ---
Progress Note Date of Service Nov 02, 2016. Subjective Pt evaluation today including: conversation w/ patient, physical exam, chart review, lab review The patient was seen and examined at bedside. No acute overnight events. Telemetry showed sinus rhythm in the 50s and 60s. Patient is resting comfortably in bed. Reports chest pain as resolved. Still has some neurological symptoms including numbness and weakness on the left side. Eating and urinating well. Pt felt well, wanted to be discharged. Has a friend on 4th floor that she wants to visit. Plan of care was described to the patient and all questions were answered. Constitutional: No fever, No chills Respiratory: No cough, No sputum, No wheezing, No shortness of breath, No dyspnea on exertion Cardiovascular: No chest pain Abdomen: No pain, No nausea, No vomiting, No diarrhea Female : No dysuria Neurologic: + problem reported (pt still reports left sided weakness and numbness, albeit it is improving, states chest pain as resolved) Psychiatric: No depression symptoms Skin: No rash Objective Physical Exam General Appearance: WD/WN, no apparent distress Eyes: PERRL, EOMI ENT: normal ENT inspection, TMs normal Neck: no JVD Respiratory/Chest: chest non-tender, lungs clear, normal breath sounds, no respiratory distress, no accessory muscle use Cardiovascular: regular rate, rhythm, no edema, no gallop, no JVD, no murmur, + normal peripheral pulses Abdomen: normal bowel sounds, non tender, soft, no organomegaly, no pulsatile mass Extremities: normal range of motion, non-tender, no pedal edema, no calf tenderness Neurologic/Psychiatric: alert, normal mood/affect, oriented x 3, + pertinent finding (according to pt decreased sensation to light touch in the LLE and LUE. Symmetrical strength of the upper and lower extremities. ) Skin: warm/dry, no rash Laboratory Results ECHOCARDIOGRAM * 1. Normal LV size, borderline LV wall thickness. * 2. Normal LV systolic function. LVEF 55-60%. No regional wall motion abnormalities. * 3. Normal RV size and function. * 4. Possible small (0.4 mm) filamentous structure on ventricular aspect of aortic valve. * 5. Trace aortic regurgitation. * 6. Compared with prior study on 11/21/2012: Previously noted filamentous structure is less prominent. BRAIN COMBO CLINICAL HISTORY: 56 years-old Female presenting with Stroke, numbness in the left arm, left leg and left jaw, slurred speech, confusion, blurry vision started at 2:30 PM on Wednesday. TECHNIQUE: Multisequence, multiplanar MR imaging of the brain was performed before and after the administration of intravenous contrast. IV contrast: 7.9 mL of Gadavist. COMPARISON: PET/CT performed on 11/01/2016. FINDINGS: Ventricles and sulci normal in size. Brain parenchyma normal in appearance with preserved francis-white differentiation. No mass effect or midline shift. No restricted diffusion to suggest acute ischemia. No hemorrhage. No extra-axial fluid collection. T2 skull base flow voids preserved. Bone marrow signal intensity within the calvarium within normal limits. IMPRESSION: 1. No acute intracranial abnormality. MRA HEAD WITHOUT CONTRAST HISTORY: 56 years-old Female Stroke - Attention to [place] acute strokelike symptoms with left upper and lower extremity numbness COMPARISON: MRI of the brain of same day, CT head 11/01/2016 TECHNIQUE: MRA of the head was obtained utilizing 3-D [id number] sequencing with MIP reformats. FINDINGS: Bilateral internal carotid arteries are widely patent. Normal and widely patent M1 branches with normal appearing trifurcation seen. Bilateral A1 branches are widely patent. Anterior communicating artery is unremarkable. The left vertebral artery is dominant. The right vertebral artery is diminutive in size, notably the V4 segment. Basilar artery and bilateral posterior cerebral arteries appear patent. No aneurysm, proximal branch occlusion or high-grade stenosis identified. IMPRESSION: 1. No aneurysm, definite high-grade stenosis or proximal branch occlusion. 2. 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 NECK MRA HISTORY: Slurred speech. Confusion. Stroke TECHNIQUE: [id number] and gadolinium-enhanced MRA of the neck was performed both before and after the intravenous administration of contrast. All measurements were calculated based on NASCET criteria. COMPARISON STUDY: Carotid Doppler 11/21/2012. FINDINGS: The aortic arch and proximal great vessels are widely patent. There is no significant stenosis, occlusion, or dissection identified within the bilateral common carotid, internal carotid, or vertebral arteries. Hypoplastic distal right vertebral artery. IMPRESSION: No significant stenosis, occlusion, or dissection identified within the carotid or vertebral arteries. 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 Chest pain has resolved on Day #1. EKG unremarkable and Trops negative. MRI head and MRA head and neck were unremarkable (more below) as was the transthoracic echo. Cardiology input appreciated in light of the fibroelastoma history. Neurology recommends 81mg ASA daily if AC is not indicated. Left Sided Face, Arm and Leg Numbness and Tingling - MRA head showed dominant left vertebral artery - this corresponds well to the majority left sided symptoms. - Echo shows a persistent fibroelastoma. - Neuro recs, ASA 81mg if doesn't need AC. Mild Intermittent Asthma - Albuterol PRN Anxiety/Insomnia - Lorazepam 2 mg scheduled HS, per home medications DVT Prophylaxis - SCD Knee, ESTHRE Hose - Lovenox 40 mg daily Disposition - Telemetry - OT and PT evaluations FULL CODE Resident Involvement: Resident Care Provided Care Provided: Adult Hospital Medicine
[2016-11-02] MEDS ORDERED: LORAZEPAM 2 MG TAB PO SCH (21:00)
[2016-11-03 04:26] VITALS: BP 115/76; PULSE 54; TEMP 36.4; O2SAT 99
[2016-11-03 06:10] LABS: BASO % 0.5 %; BASO ABS # 0.03 K/uL (0-0.2); COMPLETE YES; EOS % 4.4 %; HEMATOCRIT 46.2 % (37-47); IG% 0.3 %; LYMPH % 33.1 %; LYMPH ABS # 2.09 K/uL (1.2-3.4); MEAN CELL VOLUME 90.8 fL (80-100); MEAN CORPUSCULAR HEMOGLOBIN 30.1 pg (25-34); MEAN CORPUSCULAR HGB CONC 33.1 g/dl (32-36); MEAN PLATELET VOLUME 11.1 fL (7.4-10.4); MONO % 8.2 %; NEUT % 53.5 %; PLATELET COUNT 179 K/uL (130-400); RED BLOOD COUNT 5.09 M/uL (4.2-5.4); WHITE BLOOD COUNT 6.31 K/uL (4.8-10.8)
[2016-11-03 06:40] LABS: BUN/CREATININE RATIO 17.6 (10-20); CALCIUM 8.8 mg/dl (8.5-10.1); CREATININE 0.71 mg/dl (0.60-1.20); POTASSIUM 3.8 mmol/L (3.5-5.1)
[2016-11-03 07:13] VITALS: BP 109/71; PULSE 58; TEMP 36.4; O2SAT 99
[2016-11-03] MEDS: ASPIRIN 81 MG ECTAB PO SCH (08:25)
[2016-11-03] MEDS: ENOXAPARIN 40 MG/0.4 ML SYR SQ SCH (08:25)
--- NOTE | 2016-11-03 09:34 | CARDIOLOGY CONSULTATION ---
DATE OF CONSULTATION: 11/03/2016 REQUESTING: Rakan Betancourt MD TIME CLOCK REPAIRER: Silverio Burger DO [facility]. REASON FOR CONSULTATION: History of fibroelastoma with recent TIA. Dear Dr. 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 She was admitted through the Emergency Room with somewhat similar TIA symptoms. She has tingling down her left arm. She had weakness in her left leg and foot and actually noticed that she was dragging her left leg and had to use her arm to get it to move. She denied clumsiness or weakness in her left hand. She had difficulty with slurred speech. She notes the symptoms lasted at least an hour or 2 until they completely resolved on their own. Here in the hospital, she has not had any further episode; she had an extensive workup including an MRI and MRA of her brain which were negative. She had a CT of her head which was negative for an acute bleed. Chest x-ray was negative. She did undergo echocardiography which we personally reviewed and there is a very small filamentous structure on the LVOT side of the aortic valve. She feels well currently. She walked in the hallway. She denies any further TIA or stroke symptoms. She did note that she had palpitations prior to coming to the hospital, but in asking her about them, she describes more as a squeezing sensation that would let up and then occur again, but she did not feel her heart racing and there was no irregularity to her heartbeat. Her placing judge was reviewed here and there have been no atrial arrhythmias documented. She denies any lower extremity edema, PND, orthopnea. She is up and down stairs without any difficulty. 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 She notes she bruises easily that was present even before her surgery. With 81 mg of aspirin, she had significant bruising. A decision after her surgery due to her bruising was made to stop her aspirin therapy and this TIA occurred off antiplatelet therapy. The rest of review of systems is otherwise negative. PAST MEDICAL AND SURGICAL HISTORY: 1. Removal of an aortic valve mass November [address] Reyes at [facility]. Pathology revealed a fibroelastoma. 2. Suture closure of an atrial septal defect. 3. History of TIA in 2012 and again in 2017. 4. Arthritis. 5. History of asthma. 6. Renal calculi. 7. History of hysterectomy, appendectomy and cholecystectomy. FAMILY HISTORY: Positive for heart disease and gallbladder disease and kidney stones. SOCIAL HISTORY: She is a former smoker. Denies any current tobacco use. She drinks a bottle of alcohol a week. She lives alone. She works at [employer] as a LOAD OUT WORKER. She takes care of her home on her own and cuts the grass on her own. ALLERGIES: PENICILLIN, SULFA, CEPHALOSPORINS, CIPROFLOXACIN, LEXAPRO, AND MORPHINE. INPATIENT MEDICATIONS: Reviewed in electronic medical record. PHYSICAL EXAMINATION: GENERAL: She is awake, alert, oriented x3. She is in no acute distress. She is a well-appearing female who looks younger than her stated age. VITAL SIGNS: Her heart rate is 58, respirations 18, blood pressure 109/71. Her pulse ox is 99% on room air. HEENT: 2+ carotid upstrokes, no evidence of carotid bruits. Jugular venous pressure appeared normal. Sclerae is anicteric. Hearing is normal. LUNGS: Clear to auscultation bilaterally. No rales, rhonchi or wheezing. HEART: Regular rate and rhythm. No appreciable murmurs, rubs or gallops. ABDOMEN: Soft, nontender, nondistended. Positive bowel sounds. EXTREMITIES: No clubbing, cyanosis or edema. PSYCHIATRIC: Affect appeared appropriate. NEUROLOGIC: She is awake, alert and oriented x3. DIAGNOSTIC STUDIES: EKG sinus bradycardia, otherwise normal. 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 ECHOCARDIOGRAM: Reviewed in detail, personally reviewed from this admission. ROSEMARY 12/07/2012 from [facility] normal LV size and function, mild right ventricular dilation, biatrial enlargement, atrial septal defect, no pericardial effusion, small echodensity attached to the ventricular side of the right coronary cusp. LABORATORY STUDIES: Her metabolic profile is normal. Her troponins are negative. Her hemoglobin is 15.3 with a platelet count of 179. Her coags are normal. Her Lyme titers and hepatitis C titers are negative. IMPRESSION: 1. Transient ischemic attack. 2. History of fibroelastoma status post surgical removal November 2012. 3. History of suture closure of an atrial septal defect November 2012. 4. Echocardiogram this admission with a small strand attached to the aortic valve with minimal aortic insufficiency. PLAN: As I discussed with Ann, I would recommend as has already been started that she go back on 81 mg of aspirin daily. If the bruising as significant as she already has bruising before she started aspirin, we may need to consider aspirin 81 mg every other day or even every third day. There is nothing at this point that would require a repeat open heart surgery and I do not think she needs any additional imaging at this point with a ROSEMARY either. If the bruising is significant at that point, we could try Plavix. I discussed with her, though some patients have worse bruising on Plavix and they do want aspirin. There is no indication for anticoagulation at this point. She did inquire with regards to disability and I discussed with her at this point given the fact that her TIA symptoms have resolved that just having had a history of open heart surgery is not a reason to go on disability. We will follow up with her in the office in about a month's time. I discussed with her if she has any issues or problems to let us know sooner. Thank you very much for allowing us to participate in her care.
[2016-11-03] MEDS ORDERED: ASPEC81 PO (10:58)
--- NOTE | 2016-11-03 11:03 | Discharge Instructions ---
Discharge Instructions Date of Service Nov 03, 2016. Admission Reason for Admission: Numbness And Tingling Of Left Side Of Face Discharge Discharge Diagnosis / Problem: Transient Ichemic Attack Discharge Goals Goal(s): Decrease discomfort, Improve function, Increase independence, Improve disease control, Improve nutritional status, Learn about illness Activity Recommendations Activity Limitations: per Instructions/Follow-up section . Instructions / Follow-Up Instructions / Follow-Up A follow up with a sifter and miller will be arranged within 1 months and a follow up with a neurologist will be arranged within 1-2 months from discharge. You have been prescribed 81mg daily of Aspirin. You should take this medication every day. Please return to the ER if your symptoms return. Be advised that you should exercise regularly, eat healthy and refrain from tobacco products. A prescription note has been given to you that should allow you to return to work on 11/05/2016. An information packet on TIAs and Aspirin will be printed for you. Please read this information thoroughly. You should follow up with your Primary care Provider within one week. Current Hospital Diet Patient's current hospital diet: AHA Diet (Heart Healthy) Discharge Diet Recommended Diet: AHA Diet (Heart Healthy) Pending Studies Studies pending at discharge: no Laboratory Results Hemoglobin A1c Test 11/01/16 19:50 Range/Units Estimated Average Glucose 111 mg/dl Hemoglobin A1c 5.5 4.5-5.6 % Lipid Panel Test 11/02/16 04:17 Range/Units Triglycerides Level 64 0-150 mg/dl Cholesterol Level 145 0-200 mg/dl HDL Cholesterol 57 mg/dl Cholesterol/HDL Ratio 2.5 LDL Cholesterol, Calculated 75 mg/dl Medical Emergencies . Who to Call and When: Medical Emergencies: If at any time you feel your situation is an emergency, please call 911 immediately. . Non-Emergent Contact Non-Emergency issues call your: Primary Care Provider, Oral And Maxillofacial Pathologist, Neurologist . . "Provider Documentation" section prepared by Randy Hirsch. . VTE Core Measure Inpt VTE Proph given/why not?: Enoxaparin (Lovenox)SQ, SCD's Resident Involvement: Resident Care Provided Care Provided: Adult Hospital Medicine
--- NOTE | 2016-11-03 11:19 | Discharge Summary ---
Discharge Summary Date of Service Nov 03, 2016. Discharge Summary Admission Date: Nov 01, 2016 at 22:35 Discharge Date: Nov 03, 2016 Discharge Disposition: Home Principal Diagnosis: Transient Ischemic Attack Immunizations: Have You Had Influenza Vaccine: Yes Influenza Vaccine Date: Nov 29, 2012 History of Tetanus Vaccine?: Yes History of Pneumococcal: Yes Pneumococcal Date: Jan 17, 2012 History of Hepatitis B Vaccine: Yes Hepatitis Immunization Date: Jan 16, 2006 Procedures: ECHOCARDIOGRAM * 1. Normal LV size, borderline LV wall thickness. * 2. Normal LV systolic function. LVEF 55-60%. No regional wall motion abnormalities. * 3. Normal RV size and function. * 4. Possible small (0.4 mm) filamentous structure on ventricular aspect of aortic valve. * 5. Trace aortic regurgitation. * 6. Compared with prior study on 11/21/2012: Previously noted filamentous structure is less prominent. BRAIN COMBO CLINICAL HISTORY: 56 years-old Female presenting with Stroke, numbness in the left arm, left leg and left jaw, slurred speech, confusion, blurry vision started at 2:30 PM on Wednesday. TECHNIQUE: Multisequence, multiplanar MR imaging of the brain was performed before and after the administration of intravenous contrast. IV contrast: 7.9 mL of Gadavist. COMPARISON: PET/CT performed on 11/01/2016. FINDINGS: Ventricles and sulci normal in size. Brain parenchyma normal in appearance with preserved francis-white differentiation. No mass effect or midline shift. No restricted diffusion to suggest acute ischemia. No hemorrhage. No extra-axial fluid collection. T2 skull base flow voids preserved. Bone marrow signal intensity within the calvarium within normal limits. IMPRESSION: 1. No acute intracranial abnormality. [~ rep ct add3]] MRA HEAD WITHOUT CONTRAST HISTORY: 56 years-old Female Stroke - Attention to [facility] [place] acute strokelike symptoms with left upper and lower extremity numbness COMPARISON: MRI of the brain of same day, CT head 11/01/2016 TECHNIQUE: MRA of the head was obtained utilizing 3-D [id number]-[id number] sequencing with MIP reformats. FINDINGS: Bilateral internal carotid arteries are widely patent. Normal and widely patent M1 branches with normal appearing trifurcation seen. Bilateral A1 branches are widely patent. Anterior communicating artery is unremarkable. The left vertebral artery is dominant. The right vertebral artery is diminutive in size, notably the V4 segment. Basilar artery and bilateral posterior cerebral arteries appear patent. No aneurysm, proximal branch occlusion or high-grade stenosis identified. IMPRESSION: 1. No aneurysm, definite high-grade stenosis or proximal branch occlusion. 2. 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 The above report was generated using voice recognition software. It may contain grammatical, syntax or spelling errors. NECK MRA HISTORY: Slurred speech. Confusion. Stroke TECHNIQUE: [id number] and gadolinium-enhanced MRA of the neck was performed both before and after the intravenous administration of contrast. All measurements were calculated based on NASCET criteria. COMPARISON STUDY: Carotid Doppler 11/21/2012. FINDINGS: The aortic arch and proximal great vessels are widely patent. There is no significant stenosis, occlusion, or dissection identified within the bilateral common carotid, internal carotid, or vertebral arteries. Hypoplastic distal right vertebral artery. IMPRESSION: No significant stenosis, occlusion, or dissection identified within the carotid or vertebral arteries. HEAD WITHOUT CONTRAST (CT) CT DOSE: 537.48 mGy.cm HISTORY: Mental status change h/o TIAs, L sided facial/UE/LE numbness TECHNIQUE: Multiaxial CT images of the head were performed without the use of intravenous contrast. A dose lowering technique was utilized adhering to the principles of ALARA. Comparison: 11/20/2012 Findings: The paranasal sinuses and mastoid air cells are clear. The calvarium and skull base are intact. The ventricles and sulci are within normal limits. There is no mass, hematoma, midline shift, or acute infarct. Impression: No acute intracranial abnormality. Medication Reconciliation New Medications: Aspirin (Aspirin EC Low Dose) 81 Mg Ectab 81 MG PO QAM for 30 Days, #30 TAB Continued Medications: Albuterol Hfa (Ventolin Hfa) 200 Puffs/40959 Mcg Aers 2-4 PUFFS INH Q6H PRN for SOB/Wheezing, INHALER Lorazepam (Lorazepam) 2 Mg Tab 2 MG PO HS Discharge Exam Pt was seen and examined at bedside. No acute overnight events. Tele showed sinus rhythm in the 40s and 50s overnight. ROS: No chest pain, no SOB, no dyspnea on exertion, no palpitations, no fevers, no chills, no nausea, no vomiting, no diarrhea, no dysuria, no rash. 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 Chest pain has resolved on Day #1. EKG unremarkable and Trops negative x 2. MRI head and MRA head and neck were unremarkable as was the transthoracic echo. Telemetry monitoring showed no pathology except sinus rhythm Cardiology (Dr. Burger)'s impression is more of a TIA and will follow up will be arranged. Neurology recommends restarting 81mg ASA daily and we will also try to arrange a follow up. PCP follow up in one week. Patient was discharged on hospital Day #2 in good condition with complete resolution of symptoms. Patient was encouraged to lead an active lifestyle and discharged with information on ASA and TIAs. Total Time Spent: Greater than 30 minutes (40 minutes) This includes examination of the patient, discharge planning, medication reconciliation, and communication with other providers. Discharge Instructions Please refer to the electronic Patient Visit Report (Discharge Instructions) for additional information. Follow-Up Cardiology within 4 weeks (Dr. Burger) Neurology in 4-8 weeks (Dr. French) PCP within one week. ([facility]) Additional Copies To Maddie Alba; Silverio Burger, DO; Rikki French M.D. Resident Involvement: Resident Care Provided Care Provided: Adult Hospital Medicine
[2016-11-03 11:38] VITALS: BP 113/79; PULSE 55; TEMP 36.5; O2SAT 99
--- NOTE | 2016-11-03 13:41 | Pharmacy Progress Note ---
Pharmacist Stroke Counseling Date of Service Nov 03, 2016. Scope Pharmacy has been consulted to provide medication discharge counseling for this patient admitted with ischemic stroke/hemorrhagic stroke/ transient ischemic attack as per the Pharmacist Discharge Counseling for Stroke Patients Protocol. Medications on Discharge New Medications: Aspirin (Aspirin EC Low Dose) 81 Mg Ectab 81 MG PO QAM for 30 Days, #30 TAB Continued Medications: Albuterol Hfa (Ventolin Hfa) 200 Puffs/31140 Mcg Aers 2-4 PUFFS INH Q6H PRN for SOB/Wheezing, INHALER Lorazepam (Lorazepam) 2 Mg Tab 2 MG PO HS Action The above medications, specifically ones for stroke treatment/prophylaxis, have been reviewed in detail with the patient and/or patient b2b outside sales representative(s) prior to discharge. This includes indication, common adverse reactions, drug interactions, and medication administration. Medication counseling has been employed using the teach-back method to ensure understanding. Outcome The patient has demonstrated understanding of the medication. Please note, this patient has declined a post-discharge phone call. She had been on baby ASA in past and is aware of the importance of restarting. She will follow-up with her PCP or gis engineer if side effects from ASA are bothersome. Dr Burger is aware and also able to help trouble-shoot. AC therapy and statin therapy not indicated at this time. Thank you for allowing pharmacy to be involved in the care of this patient. Please call [phone] or [phone] with any additional questions
== END 2016-11-03 14:04 | disposition home or self-care (01) | DRG 69 ==
LOC: C.EDB 19:27 → C.2T 22:35 → ENRESERV 22:53
PROVIDERS: ADMIT Student in an Organized Health Care Education/Training Program; ATTEND Hospitalist
DX: G45.9 Transient cerebral ischemic attack, unspecified (principal); J45.20 Mild intermittent asthma, uncomplicated; F41.9 Anxiety disorder, unspecified; G47.00 Insomnia, unspecified; Z79.899 Other long term (current) drug therapy; Z86.018 Personal history of other benign neoplasm

== ENCOUNTER → 2016-12-30 | Outpatient (CLI) | payer BC ==
[~2016-12-30] MED LIST changes: +ASPEC81 PO; -ATV/2 PO; +ATV2 PO; -CHOL1TAB42 PO; -CLR10 PO; -CRAN1CAP15 PO; -DEXT1SYP PO; +GADAVIST IV PRN; -MULTTAB58 PO; -TRAZ50TA35 PO
--- NOTE | 2016-12-30 17:48 | DIAGNOSTIC IMAGING REPORT ---
MRI OF THE BRAIN COMBO CLINICAL HISTORY: Headache. Slurred speech. Left-sided weakness and numbness. COMPARISON STUDY: MRI of the brain dated 11/02/2016. TECHNIQUE: MRI of the brain was performed utilizing various T1 and T2-weighted sequences in the axial, sagittal, and coronal planes. Contrast-enhanced sequences were acquired following the administration of 8 cc of Gadavist. FINDINGS: Brain parenchyma: The brain parenchyma is normal in appearance. There is no hemorrhage or mass effect. There is no restricted diffusion to suggest acute ischemia. No enhancing mass lesion is identified on the postcontrast images. Baumann-white matter differentiation is preserved. No extra-axial fluid collection is seen. The cerebellar tonsils are normal in configuration. Ventricles, sulci, and cisterns: Normal in configuration. Pituitary and sella: Unremarkable. Intracranial vasculature: Normal flow voids are maintained at the skull base. Orbits: The bony orbits are grossly intact. Orbital contents are normal in appearance. Sinuses and mastoids: Mild mucosal thickening is seen in the frontal an anterior ethmoid sinuses. The remaining paranasal sinuses are clear, as are the mastoid air cells. Calvarium: Unremarkable. Cervical cord: Partially visualized cervical spinal cord is normal in morphology and signal intensity. IMPRESSION: No acute intracranial abnormality. Electronically signed by: Andi Gomez M.D. 12/30/2016 5:46 PM Dictated Date/Time: 12/30/2016 5:40 PM
== END | disposition home or self-care (01) ==
LOC: C.MRI 16:32
PROVIDERS: ATTEND Psychiatry & Neurology Neurology
DX: I63.9 Cerebral infarction, unspecified (principal)

== ENCOUNTER 2017-05-10 15:06 | Emergency (ER) | payer BC ==
[~2017-05-10] VITALS: Ht 165.1 cm; Wt 93.7 kg
[~2017-05-10 15:06] MED LIST changes: -GADAVIST IV PRN
[2017-05-10 15:12] VITALS: TEMP 36.7; Ht 165.1 cm; Wt 93.7 kg
--- NOTE | 2017-05-10 16:05 | DIAGNOSTIC IMAGING REPORT ---
SINGLE VIEW CHEST CLINICAL HISTORY: Atypical chest pain. FINDINGS: An AP, portable, upright chest radiograph is compared to study dated 11/01/2016. The examination is degraded by portable technique and patient rotation. The patient is status post midline sternotomy. The heart is enlarged. The pulmonary vasculature is noncongested. The lungs and pleural spaces are clear. No pneumothorax is seen. The bony thorax is grossly intact. There is mild thoracic scoliosis. IMPRESSION: Cardiomegaly with no acute cardiopulmonary abnormality. Electronically signed by: Andi Gomez M.D. 05/10/2017 4:04 PM Dictated Date/Time: 05/10/2017 4:03 PM
[2017-05-10 16:19] LABS: PTT PATIENT 26.8 SECONDS (21.0-31.0)
[2017-05-10 16:23] LABS: BASO % 0.3 %; BASO ABS # 0.02 K/uL (0-0.2); EOS % 4.3 %; EOS ABS # 0.31 K/uL (0-0.5); HEMATOCRIT 46.5 % (37-47); HEMOGLOBIN 15.6 g/dL (12.0-16.0); LYMPH % 24.7 %; LYMPH ABS # 1.78 K/uL (1.2-3.4); MEAN CELL VOLUME 89.4 fL (80-100); MEAN CORPUSCULAR HGB CONC 33.5 g/dl (32-36); MEAN PLATELET VOLUME 10.9 fL (7.4-10.4); MONO % 5.5 %; NEUT % 65.2 %; PLATELET COUNT 188 K/uL (130-400); RED CELL DISTRIBUTION WIDTH CV 13.9 % (11.5-14.5); WHITE BLOOD COUNT 7.21 K/uL (4.8-10.8)
[2017-05-10 16:37] LABS: ALBUMIN 3.7 gm/dl (3.4-5.0); CALCIUM 9.1 mg/dl (8.5-10.1); CREATININE 0.86 mg/dl (0.60-1.20); POTASSIUM 3.7 mmol/L (3.5-5.1)
[2017-05-10 16:41] LABS: CKMB 0.9 ng/ml (0.5-3.6)
[2017-05-10] MEDS ORDERED: APIX1TAB3 PO (17:06)
[2017-05-10] MEDS ORDERED: ASPI-232 PO (17:06)
--- NOTE | 2017-05-10 17:23 | EMERGENCY ROOM VISIT NOTE ---
History First contact with patient: 15:15 Chief Complaint: CHEST PAIN Stated Complaint: HEART CONCERN, PT STATES SHE IS HAVING CHEST PAIN Nursing Triage Summary: Pt c/o "feeling wiped out". She got up this morning and wasn't able to do much at all. She c/o pressure in the left side of her chest, numbness in the left jaw. Pt denies trauma, denies SOB, had dry heaves this morning. Pt has cardiac and stroke history. pt states she cannot tell if this feels like a prior stroke. Pt c/o intermittent cramps in the backside of her legs. History of Present Illness The patient is a 56 year old female who presents to the Emergency Room with complaints of chest pain which began this morning. The patient reports that she has a pinching, dull pain in the left upper chest. She states that in association with this, she has a fluttering sensation in her chest. The patient states that the symptoms began this morning shortly after waking up. She states that she was nauseous this morning. This has improved. She states that the pain is slightly radiated down her left arm earlier, but is no longer radiating down the arm. She states the fluttering sensation is worse when she is standing up. 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 She follows with a specialist in [place] for this. The patient states that she had a prior stroke and whenever she is stressed or tired, she has residual numbness or weakness. She has no deficits at baseline. She is currently on Levaquin for a UTI. She currently takes Eliquis and denies missing any doses. She denies any shortness of breath. Review of Systems A complete 10 point review of systems was reviewed with the patient with pertinent positives and negatives as per history of present illness. All else were negative. Past Medical/Surgical History Medical Problems: (1) Kidney stone (2) Numbness and tingling of left side of face (3) Papillary fibroelastoma (4) PFO (patent foramen ovale) Surgical Problems: (1) History of hysterectomy (2) Hx of appendectomy (3) Hx of cholecystectomy Family History FH: heart disease FHx: gallbladder disease Kidney stones Social History Smoking Status: Never Smoker Alcohol Use: none Drug Use: none Housing Status: lives alone Occupation Status: employed Current/Historical Medications Scheduled Apixaban (Eliquis), 5 MG PO BID Aspirin (Aspir-81), 1 TAB PO 3XWK Lorazepam (Lorazepam), 2 MG PO HS Scheduled PRN Albuterol Hfa (Ventolin Hfa), 2-4 PUFFS INH Q6H PRN for SOB/Wheezing Physical Exam Vital Signs Date Time Temp Pulse Resp B/P (MAP) Pulse Ox O2 Delivery O2 Flow Rate FiO2 05/10/17 17:47 65 16 119/69 99 05/10/17 17:23 65 16 119/69 99 Room Air 05/10/17 16:05 45 138/75 99 Room Air 57 132/83 83 121/88 05/10/17 15:50 Room Air 05/10/17 15:29 53 05/10/17 15:12 36.7 55 16 142/73 100 Room Air Physical Exam VITALS: Vitals are noted on the nurse's note and reviewed by myself. Vital signs stable. GENERAL: This is a 56-year-old female, in no acute distress, nondiaphoretic, well-developed well-nourished. SKIN: The skin was without rashes. EARS: External auditory canals clear, tympanic membranes pearly francis without erythema or effusion bilaterally. EYES: Pupils equal round and reactive to light and accommodation. MOUTH: Mucous membranes moist. Tonsils are not enlarged. Pharynx without erythema or exudate. NECK: Supple without nuchal rigidity. No lymphadenopathy. HEART: Bradycardic, regular rhythm without murmurs gallops or rubs. LUNGS: Clear to auscultation bilaterally without wheezes, rales or rhonchi. No retractions or accessory muscle use. ABDOMEN: Positive bowel sounds x 4. Soft, nontender to palpation. MUSCULOSKELETAL: Strength 5/5 throughout. NEURO: Patient was alert and oriented to person place and time. No focal neurological deficits. Medical Decision & Procedures ER Provider Diagnostic Interpretation: SINGLE VIEW CHEST CLINICAL HISTORY: Atypical chest pain. FINDINGS: An AP, portable, upright chest radiograph is compared to study dated 11/01/2016. The examination is degraded by portable technique and patient rotation. The patient is status post midline sternotomy. The heart is enlarged. The pulmonary vasculature is noncongested. The lungs and pleural spaces are clear. No pneumothorax is seen. The bony thorax is grossly intact. There is mild thoracic scoliosis. IMPRESSION: Cardiomegaly with no acute cardiopulmonary abnormality Laboratory Results 05/10/17 15:45 Red Blood Count 5.20, Mean Corpuscular Volume 89.4, Mean Corpuscular Hemoglobin 30.0, Mean Corpuscular Hemoglobin Concent 33.5, Mean Platelet Volume 10.9, Neutrophils (%) (Auto) 65.2, Lymphocytes (%) (Auto) 24.7, Monocytes (%) (Auto) 5.5, Eosinophils (%) (Auto) 4.3, Basophils (%) (Auto) 0.3, Neutrophils # (Auto) 4.70, Lymphocytes # (Auto) 1.78, Monocytes # (Auto) 0.40, Eosinophils # (Auto) 0.31, Basophils # (Auto) 0.02 05/10/17 15:45 Test 05/10/17 15:45 05/10/17 16:13 White Blood Count 7.21 K/uL (4.8-10.8) Red Blood Count 5.20 M/uL (4.2-5.4) Hemoglobin 15.6 g/dL (12.0-16.0) Hematocrit 46.5 % (37-47) Mean Corpuscular Volume 89.4 fL (80-100) Mean Corpuscular Hemoglobin 30.0 pg (25-34) Mean Corpuscular Hemoglobin Concent 33.5 g/dl (32-36) Platelet Count 188 K/uL (130-400) Mean Platelet Volume 10.9 fL (7.4-10.4) Neutrophils (%) (Auto) 65.2 % Lymphocytes (%) (Auto) 24.7 % Monocytes (%) (Auto) 5.5 % Eosinophils (%) (Auto) 4.3 % Basophils (%) (Auto) 0.3 % Neutrophils # (Auto) 4.70 K/uL (1.4-6.5) Lymphocytes # (Auto) 1.78 K/uL (1.2-3.4) Monocytes # (Auto) 0.40 K/uL (0.11-0.59) Eosinophils # (Auto) 0.31 K/uL (0-0.5) Basophils # (Auto) 0.02 K/uL (0-0.2) RDW Standard Deviation 46.0 fL (36.4-46.3) RDW Coefficient of Variation 13.9 % (11.5-14.5) Immature Granulocyte % (Auto) 0.0 % Immature Granulocyte # (Auto) 0.00 K/uL (0.00-0.02) Prothrombin Time 10.6 SECONDS (9.0-12.0) Prothromb Time International Ratio 1.0 (0.9-1.1) Activated Partial Thromboplast Time 26.8 SECONDS (21.0-31.0) Partial Thromboplastin Ratio 1.0 Urine Color YELLOW Urine Appearance CLEAR (CLEAR) Urine pH 7.0 (4.5-7.5) Urine Specific [place] 1.009 (1.000-1.030) Urine Protein NEG (NEG) Urine Glucose (UA) NEG (NEG) Urine Ketones NEG (NEG) Urine Occult Blood NEG (NEG) Urine Nitrite NEG (NEG) Urine Bilirubin NEG (NEG) Urine Urobilinogen NEG (NEG) Urine Leukocyte Esterase NEG (NEG) Anion Gap 6.0 mmol/L (3-11) Est Creatinine Clear Calc Drug Dose 84.6 ml/min Estimated GFR () 88.8 Estimated GFR (Non- 76.6 BUN/Creatinine Ratio 16.8 (10-20) Calcium Level 9.1 mg/dl (8.5-10.1) Total Bilirubin 0.6 mg/dl (0.2-1) Aspartate Amino Transf (AST/SGOT) 17 U/L (15-37) Alanine Aminotransferase (ALT/SGPT) 24 U/L (12-78) Alkaline Phosphatase 78 U/L (45-117) Total Creatine Kinase 69 U/L (26-192) Creatine Kinase MB 0.9 ng/ml (0.5-3.6) Creatine Kinase MB Ratio 1.3 (0-3.0) Total Protein 7.0 gm/dl (6.4-8.2) Albumin 3.7 gm/dl (3.4-5.0) Globulin 3.3 gm/dl (2.5-4.0) Albumin/Globulin Ratio 1.1 (0.9-2) Bedside Troponin I < 0.030 ng/ml (0-0.045) ECG Per My Interpretation Indication: chest pain Rate (beats per minute): 55 Rhythm: sinus bradycardia Findings: no acute ischemic change, no ectopy Change: no significant change Medical Decision Differential diagnosis includes acute coronary syndrome, pulmonary embolism, pneumothorax, pericarditis, myocarditis, endocarditis, anxiety, musculoskeletal pain, GERD, costochondritis, pneumonia, among others. The patient is a 56-year-old female who presents today complaining of multiple symptoms. The patient's complaints are slightly vague and are not suggestive of CVA or ACS. Labs revealed no leukocytosis, anemia or concerning electrolyte abnormalities. Troponin was not elevated. Urinalysis was unremarkable. Chest x-ray was unchanged from a previous. EKG shows a sinus bradycardia without ischemic changes and is unchanged from a previous. She is bradycardic but this is baseline. Patient is concerned that her fibro-elastoma could be causing the symptoms. She states that her specialist told her if she becomes symptomatic she should call him to be rechecked and for consideration of removal of the fibroblastoma. I advised the patient to rest for the next few days and call her specialist for follow-up. She additionally has a local panel cutter and will contact him for follow-up as well. The patient's case was reviewed with Dr. Up, ED attending physician, who agreed with my assessment and treatment plan. Based on the patient's presentation and work up, I feel the patient is stable for outpatient treatment. The patient was educated to return to the emergency department for any worsening of their current condition or new/concerning symptoms. She will follow up with her PCP and panel cutter. Medication Reconcilliation Current Medication List: was personally reviewed by me Blood Pressure Screening Patient's blood pressure: Normal blood pressure Impression Primary Impression: Left sided chest pain Departure Information Dispostion Home / Self-Care Condition GOOD Referrals Maddie Alba (PCP) Silverio Burger, DO Patient Instructions My [facility] Additional Instructions You have been treated in the Emergency Department for your Chest Pain. Laboratory results and Imaging Studies have ruled out any cardiac or pulmonary cause of your chest pain. For pain control, you can use the following [id number] medicines (if >12 yo): - Regular strength (325mg/tab) Tylenol (acetaminophen) 2 tabs every 4-6 hours as needed. Do not exceed 12 tablets in a 24 hour period. Avoid taking more than 4 grams (4000 mg) of Tylenol per day. This includes any other sources of acetaminophen you may take on a regular basis. - Regular strength (200 mg/tab) Advil (ibuprofen) 1-2 tabs every 4-6 hours as needed. Do not exceed a dose of 3200 mg per day. You should schedule a follow-up appointment with your Primary Care Provider in 2 -3 days for further evaluation from today's Emergency Department visit. Contact your local panel cutter and your panel cutter in [place] to be rechecked this week. Return to the Emergency Department if your current symptoms worsen despite treatment course outlined above, or if you develop any of the following symptoms : worsening chest pain, associated jaw/arm pain, nausea, dizziness, shortness of breath, bloody cough, or fainting.
[2017-05-10 17:47] VITALS: BP 119/69; PULSE 65; O2SAT 99
== END 2017-05-10 17:40 | disposition home or self-care (01) ==
LOC: C.EDB 15:07 → C.EDC 17:40
DX: R07.9 Chest pain, unspecified (principal); R00.1 Bradycardia, unspecified; R11.0 Nausea; D15.1 Benign neoplasm of heart; Z86.73 Personal history of transient ischemic attack (TIA), and cerebral infarction without residual deficits; Z79.01 Long term (current) use of anticoagulants; Z79.82 Long term (current) use of aspirin; Z82.49 Family history of ischemic heart disease and other diseases of the circulatory system; Z83.79 Family history of other diseases of the digestive system; Z84.1 Family history of disorders of kidney and ureter

== ENCOUNTER 2017-06-24 14:46 | Emergency (ER) | payer BC ==
[~2017-06-24] VITALS: Ht 162.6 cm; Wt 83.5 kg
[~2017-06-24 14:46] MED LIST changes: +APIX1TAB3 PO; -ASPEC81 PO; +ASPI-232 PO
[2017-06-24 14:51] VITALS: TEMP 36.6; Ht 162.6 cm; Wt 83.5 kg
[2017-06-24 15:33] LABS: BASO % 0.2 %; BASO ABS # 0.02 K/uL (0-0.2); EOS % 1.8 %; EOS ABS # 0.18 K/uL (0-0.5); HEMATOCRIT 42.8 % (37-47); HEMOGLOBIN 14.4 g/dL (12.0-16.0); IG# 0.01 K/uL (0.00-0.02); LYMPH % 19.6 %; LYMPH ABS # 1.92 K/uL (1.2-3.4); MEAN CELL VOLUME 87.7 fL (80-100); MEAN CORPUSCULAR HEMOGLOBIN 29.5 pg (25-34); MEAN CORPUSCULAR HGB CONC 33.6 g/dl (32-36); MEAN PLATELET VOLUME 10.7 fL (7.4-10.4); MONO % 4.4 %; MONO ABS # 0.43 K/uL (0.11-0.59); NEUT % 73.9 %; NEUT ABS # 7.22 K/uL (1.4-6.5); PLATELET COUNT 202 K/uL (130-400); RED CELL DISTRIBUTION WIDTH CV 13.3 % (11.5-14.5); WHITE BLOOD COUNT 9.78 K/uL (4.8-10.8)
[2017-06-24] MEDS ORDERED: CRAN1TAB3 PO (15:35)
[2017-06-24] MEDS ORDERED: MULT-513 PO (15:35)
[2017-06-24] MEDS ORDERED: CHOL200010 PO (15:35)
[2017-06-24] MEDS ORDERED: MAGN400T6 PO (15:35)
[2017-06-24 15:52] LABS: ALBUMIN 3.7 gm/dl (3.4-5.0); CALCIUM 8.9 mg/dl (8.5-10.1); CREATININE 0.82 mg/dl (0.60-1.20); POTASSIUM 3.7 mmol/L (3.5-5.1); TOTAL PROTEIN 7.1 gm/dl (6.4-8.2)
--- NOTE | 2017-06-24 17:35 | DIAGNOSTIC IMAGING REPORT ---
CT SCAN OF THE ABDOMEN AND PELVIS WITHOUT IV CONTRAST CLINICAL HISTORY: Right flank pain and hematuria. COMPARISON STUDY: Abdominal CT dated 04/29/2015. TECHNIQUE: CT scan of the abdomen and pelvis is performed from the lung bases to the proximal femora. Images are reviewed in the axial, sagittal, and coronal planes. IV contrast was not administered for this examination as per the referring clinician. A dose lowering technique was utilized adhering to the principles of ALARA. CT DOSE: 524.48 mGy.cm FINDINGS: Lung bases: The patient is status post midline sternotomy. The heart is mildly enlarged and without pericardial effusion. The lung bases are clear. A small hiatal hernia is noted. Liver: The unenhanced liver is normal in size, contour, and attenuation. There is no intrahepatic biliary ductal dilatation. Gallbladder: Surgically absent noting clips in the gallbladder fossa. Spleen: Normal in size and attenuation. Pancreas: The unenhanced pancreas is grossly unremarkable. Adrenal glands: A 1.6 cm left adrenal nodule meets CT criteria for a fat-containing adenoma. The right adrenal gland is normal in appearance. Kidneys: The unenhanced kidneys demonstrate cortical atrophy and are without hydronephrosis. There are least 8 nonobstructing left renal calculi which measure up to 7 mm. There are least 4 nonobstructing right renal calculi which measure up to 5 mm. No ureteral stone is seen. There is no evidence of contour deforming renal mass lesion. Abdominal vasculature: The abdominal aorta is normal in course and caliber. Bowel: There is moderate colonic fecal retention. No bowel obstruction is seen. The appendix is not identified and reported surgically absent. Peritoneum: There is no intraperitoneal free air or abdominal ascites. Lymphadenopathy: None. Pelvic viscera: There is circumferential bladder wall thickening. Small calcified uterine fibroids are noted. No adnexal lesion is seen. Skeletal structures: The skeletal structures are osteopenic. There is mild lumbosacral spondylosis. Sclerotic change is noted in the sacroiliac joints. No lytic or blastic lesions are seen. IMPRESSION: 1. There is circumferential bladder wall thickening. Correlate clinically and with urinalysis for evidence of cystitis. 2. There are bilateral nonobstructing renal calculi. No ureteral stone is seen and there is no hydronephrosis. 3. There is a calcified uterine fibroid. 4. Moderate constipation. No bowel obstruction is seen. 5. Additional findings as above. Electronically signed by: Andi Gomez M.D. 06/24/2017 5:34 PM Dictated Date/Time: 06/24/2017 5:23 PM
[2017-06-24] MEDS ORDERED: LEVO-366 PO (18:13)
[2017-06-24] MEDS ORDERED: LEVOFLOXACIN 250 MG TAB PO ONE (18:15)
[2017-06-24 18:27] VITALS: BP 126/67; PULSE 67; O2SAT 98
--- NOTE | 2017-06-24 18:48 | EMERGENCY ROOM VISIT NOTE ---
History Report prepared by Lorraine: Bethany Valdivia Under the Supervision of: Dr. Fortino Alvarado D.O. First contact with patient: 14:55 Chief Complaint: URINARY SYMPTOMS Stated Complaint: BLOOD IN URINE, BURNING History of Present Illness The patient is a 56 year old female who presents to the Emergency Room with complaints of worsening urinary symptoms starting a few days ago. The patient states that she was sent to the ED by her PCP for hematuria. She notes that she was passing pieces of flesh that looked like blood clots. She notes that she is on a blood thinner and has a history of kidney stones. The patient states that she had a UTI a few weeks ago. The patient complains of pain with urination, urination frequency, right flank pain, chills, nausea, dizziness, and diaphoresis. No other exacerbating or remitting factors. No recorded fevers above 100.4. Pain is only present with urination. She notes that she took one Peridium tablet this morning. The patient denies vomiting, diarrhea, lightheadedness, and vaginal bleeding. Source of History: patient Onset: a few days ago Position: other (global) Quality: other (urinary) Timing: worsening Associated Symptoms: + chills, + diaphoresis, + nausea, No vomiting, No diarrhea Note: The patient complains of right flank pain and dizziness. The patient denies lightheadedness and vaginal bleeding. Review of Systems See HPI for pertinent positives & negatives. A total of 10 systems reviewed and were otherwise negative. Past Medical & Surgical Medical Problems: (1) A-fib (2) Kidney stone (3) Numbness and tingling of left side of face (4) Papillary fibroelastoma (5) PFO (patent foramen ovale) (6) Stroke Surgical Problems: (1) History of hysterectomy (2) Hx of appendectomy (3) Hx of cholecystectomy Family History FH: heart disease FHx: gallbladder disease Kidney stones Social History Smoking Status: Former Smoker Alcohol Use: none Drug Use: none Marital Status: single Housing Status: lives alone Occupation Status: employed Current/Historical Medications Scheduled Apixaban (Eliquis), 5 MG PO BID Cholecalciferol (Vitamin D), 2,000 UNIT PO DAILY Cranberry (Vaccinium Macrocarp (Cranberry), 450 MG PO DAILY Levofloxacin (Levaquin), 500 MG PO DAILY Lorazepam (Lorazepam), 2 MG PO HS Magnesium Oxide (Mag-Ox), 400 MG PO QPM Multivitamins/Minerals (Mvi With Minerals), 1 TAB PO DAILY Scheduled PRN Albuterol Hfa (Ventolin Hfa), 2-4 PUFFS INH Q6H PRN for SOB/Wheezing Allergies Coded Allergies: Penicillins (Verified Allergy, Mild, 06/24/17) Sulfa Drugs (Verified Allergy, Mild, 06/24/17) Cephalosporins (Verified Allergy, Unknown, ., 06/24/17) Ciprofloxacin (Verified Allergy, Unknown, MUSCLE SPASMS, 06/24/17) Escitalopram (Verified Allergy, Unknown, UNKNOWN, 06/24/17) Morphine (Verified Allergy, Unknown, agitation, 06/24/17) Physical Exam Vital Signs Date Time Temp Pulse Resp B/P (MAP) Pulse Ox O2 Delivery O2 Flow Rate FiO2 06/24/17 18:27 67 16 126/67 98 06/24/17 17:00 65 16 115/76 95 Room Air 06/24/17 14:51 36.6 62 16 118/75 95 Room Air Physical Exam GENERAL: Sitting up in bed, alert, well appearing, well nourished, no distress, non-toxic EYE EXAM: normal conjunctiva. OROPHARYNX: no exudate, no erythema, lips, buccal mucosa, and tongue normal and mucous membranes are moist NECK: supple, no nuchal rigidity, no adenopathy, non-tender LUNGS: Clear to auscultation. Normal chest wall mechanics HEART: no murmurs, S1 normal and S2 normal ABDOMEN: abdomen soft, non-tender, normo-active bowel sounds, no masses, no rebound or guarding. BACK: Back is symmetrical on inspection and there is no deformity, no midline tenderness, no CVA tenderness. SKIN: no rashes and no bruising UPPER EXTREMITIES: upper extremities are grossly normal. LOWER EXTREMITIES: No pitting edema. NEURO EXAM: Normal sensorium, cranial nerves II-XII grossly intact, normal speech, no gross weakness of arms, no gross weakness of legs. Medical Decision & Procedures ER Provider Diagnostic Interpretation: Radiology results as stated below per my review and the radiologist's interpretation: CT SCAN OF THE ABDOMEN AND PELVIS WITHOUT IV CONTRAST CLINICAL HISTORY: Right flank pain and hematuria. COMPARISON STUDY: Abdominal CT dated 04/29/2015. TECHNIQUE: CT scan of the abdomen and pelvis is performed from the lung bases to the proximal femora. Images are reviewed in the axial, sagittal, and coronal planes. IV contrast was not administered for this examination as per the referring clinician. A dose lowering technique was utilized adhering to the principles of ALARA. CT DOSE: 524.48 mGy.cm FINDINGS: Lung bases: The patient is status post midline sternotomy. The heart is mildly enlarged and without pericardial effusion. The lung bases are clear. A small hiatal hernia is noted. Liver: The unenhanced liver is normal in size, contour, and attenuation. There is no intrahepatic biliary ductal dilatation. Gallbladder: Surgically absent noting clips in the gallbladder fossa. Spleen: Normal in size and attenuation. Pancreas: The unenhanced pancreas is grossly unremarkable. Adrenal glands: A 1.6 cm left adrenal nodule meets CT criteria for a fat-containing adenoma. The right adrenal gland is normal in appearance. Kidneys: The unenhanced kidneys demonstrate cortical atrophy and are without hydronephrosis. There are least 8 nonobstructing left renal calculi which measure up to 7 mm. There are least 4 nonobstructing right renal calculi which measure up to 5 mm. No ureteral stone is seen. There is no evidence of contour deforming renal mass lesion. Abdominal vasculature: The abdominal aorta is normal in course and caliber. Bowel: There is moderate colonic fecal retention. No bowel obstruction is seen. The appendix is not identified and reported surgically absent. Peritoneum: There is no intraperitoneal free air or abdominal ascites. Lymphadenopathy: None. Pelvic viscera: There is circumferential bladder wall thickening. Small calcified uterine fibroids are noted. No adnexal lesion is seen. Skeletal structures: The skeletal structures are osteopenic. There is mild lumbosacral spondylosis. Sclerotic change is noted in the sacroiliac joints. No lytic or blastic lesions are seen. IMPRESSION: 1. There is circumferential bladder wall thickening. Correlate clinically and with urinalysis for evidence of cystitis. 2. There are bilateral nonobstructing renal calculi. No ureteral stone is seen and there is no hydronephrosis. 3. There is a calcified uterine fibroid. 4. Moderate constipation. No bowel obstruction is seen. 5. Additional findings as above. Electronically signed by: Andi Gomez M.D. 06/24/2017 5:34 PM Dictated Date/Time: 06/24/2017 5:23 PM Laboratory Results 5/17/18 15:19 Red Blood Count 4.88, Mean Corpuscular Volume 87.7, Mean Corpuscular Hemoglobin 29.5, Mean Corpuscular Hemoglobin Concent 33.6, Mean Platelet Volume 10.7, Neutrophils (%) (Auto) 73.9, Lymphocytes (%) (Auto) 19.6, Monocytes (%) (Auto) 4.4, Eosinophils (%) (Auto) 1.8, Basophils (%) (Auto) 0.2, Neutrophils # (Auto) 7.22, Lymphocytes # (Auto) 1.92, Monocytes # (Auto) 0.43, Eosinophils # (Auto) 0.18, Basophils # (Auto) 0.02 06/24/17 15:19 Test 06/24/17 14:58 06/24/17 15:19 Urine Color DK YELLOW Urine Appearance CLEAR (CLEAR) Urine pH 7.0 (4.5-7.5) Urine Specific [place] 1.010 (1.000-1.030) Urine Protein 1+ (NEG) Urine Glucose (UA) NEG (NEG) Urine Ketones NEG (NEG) Urine Occult Blood 3+ (NEG) Urine Nitrite POS (NEG) Urine Bilirubin NEG (NEG) Urine Urobilinogen NEG (NEG) Urine Leukocyte Esterase LARGE (NEG) Urine WBC (Auto) >30 /hpf (0-5) Urine RBC (Auto) >30 /hpf (0-4) Urine Hyaline Casts (Auto) 1-5 /lpf (0-5) Urine Epithelial Cells (Auto) 20-30 /lpf (0-5) Urine Bacteria (Auto) NEG (NEG) Urine Test NEG (NEG) White Blood Count 9.78 K/uL (4.8-10.8) Red Blood Count 4.88 M/uL (4.2-5.4) Hemoglobin 14.4 g/dL (12.0-16.0) Hematocrit 42.8 % (37-47) Mean Corpuscular Volume 87.7 fL (80-100) Mean Corpuscular Hemoglobin 29.5 pg (25-34) Mean Corpuscular Hemoglobin Concent 33.6 g/dl (32-36) Platelet Count 202 K/uL (130-400) Mean Platelet Volume 10.7 fL (7.4-10.4) Neutrophils (%) (Auto) 73.9 % Lymphocytes (%) (Auto) 19.6 % Monocytes (%) (Auto) 4.4 % Eosinophils (%) (Auto) 1.8 % Basophils (%) (Auto) 0.2 % Neutrophils # (Auto) 7.22 K/uL (1.4-6.5) Lymphocytes # (Auto) 1.92 K/uL (1.2-3.4) Monocytes # (Auto) 0.43 K/uL (0.11-0.59) Eosinophils # (Auto) 0.18 K/uL (0-0.5) Basophils # (Auto) 0.02 K/uL (0-0.2) RDW Standard Deviation 43.0 fL (36.4-46.3) RDW Coefficient of Variation 13.3 % (11.5-14.5) Immature Granulocyte % (Auto) 0.1 % Immature Granulocyte # (Auto) 0.01 K/uL (0.00-0.02) Anion Gap 6.0 mmol/L (3-11) Est Creatinine Clear Calc Drug Dose 82.0 ml/min Estimated GFR () 94.0 Estimated GFR (Non- 81.1 BUN/Creatinine Ratio 22.3 (10-20) Calcium Level 8.9 mg/dl (8.5-10.1) Total Bilirubin 0.8 mg/dl (0.2-1) Direct Bilirubin 0.2 mg/dl (0-0.2) Aspartate Amino Transf (AST/SGOT) 21 U/L (15-37) Alanine Aminotransferase (ALT/SGPT) 22 U/L (12-78) Alkaline Phosphatase 77 U/L (45-117) Total Protein 7.1 gm/dl (6.4-8.2) Albumin 3.7 gm/dl (3.4-5.0) Lipase 103 U/L (73-393) Laboratory results per my review. Medications Administered Medications (Trade) Dose Ordered Sig/Viv Route Start Time Stop Time Status Last Admin Dose Admin Levofloxacin (Levaquin Tab) 500 mg NOW ONCE PO 06/24/17 18:15 18 18:16 DC 06/24/17 18:24 500 MG ED Course ED COURSE: Vital signs were reviewed and showed were normal. The patients medical record was reviewed The above diagnostic studies were performed and reviewed. ED treatments and interventions as stated above. 1509: The patient was evaluated in room B11B. A complete history and physical examination was performed. 1707: The patient was sent home on Cipro recently. 1757: Upon reevaluation, the patient is resting comfortably.I discussed my findings with the patient and she understands and agrees with the treatment plan. Based on the patients age, coexisting illnesses, exam and lab findings the decision to treat as an outpatient was made. The patient remained stable while under my care. The patient appeared well at the time of discharge. 1808: I spoke to the patient and she has recently taken Levaquin so I will prescribe her that due to her extensive allergies. 1815: Ordered Levofloxacin 500 mg PO. Medical Decision Differential diagnoses includes but is not limited to gastritis, peptic ulcer disease, GERD, gallbladder disease, pancreatitis, small bowel obstruction, acute coronary syndrome, pericarditis, ischemic bowel, irritable bowel disease, irritable bowel syndrome, appendicitis, diverticulitis, malignancy, hernia, urinary tract infection, torsion, /ectopic , perforation, trauma, infectious. Patient is a 56-year-old female that presents the ER for dysuria, urgency and frequency associated with hematuria on a blood thinner. She does have mild back pain. Afebrile. Vitals are stable. CBC along with BMP, LFTs, bilirubin and lipase was unremarkable. negative. UA contaminated with multiple epithelial cells but did suggest possible UTI. She has multiple allergies. Had prolonged conversation reviewing these allergies and she was slightly uncertain and became annoyed due to multiple collections. After review she does and has taken Levaquin in the past month. We did elect to give her Levaquin. She is updated at bedside. She is discharged follow-up with her PCP as an outpatient next 3 days. If her hematuria continues after the course of antibiotics she will need to have that followed up. Discussed with Pt concerning signs and symptoms to watch out for. Pt was instructed to follow up with their PCP and discussed with the patient their option to return to the ED at anytime for persistent or worsening symptoms. The appropriate anticipatory guidance and out-patient management, including indications for return to the emergency department, were explained at length to the patient and understood. Medication Reconcilliation Current Medication List: was personally reviewed by me Blood Pressure Screening Patient's blood pressure: Normal blood pressure Blood pressure disposition: Did not require urgent referral Impression Primary Impression: UTI (urinary tract infection) Additional Impression: Hematuria Scribe Attestation The scribe's documentation has been prepared under my direction and personally reviewed by me in its entirety. I confirm that the note above accurately reflects all work, treatment, procedures, and medical decision making performed by me. Departure Information Dispostion Home / Self-Care Prescriptions Levofloxacin (Levaquin) 500 Mg Tab 500 MG PO DAILY for 9 Days, TAB Prov: Fortino Alvarado, DO 06/24/17 Referrals Maddie Alba (PCP) Forms HOME CARE DOCUMENTATION FORM, IMPORTANT VISIT INFORMATION Patient Instructions My [facility] Additional Instructions Please follow up with your primary care doctor with in the next 24 hours. Any worsening of your symptoms, please return to the ED immediately. This includes any fevers greater than 100.4, worsening pain, chest pain, shortness breath, persistent nausea, vomiting, dizziness, lightheadedness, passing out, unable to eat or drink, or any other concerning signs or symptoms from your standpoint. Please take antibiotics as prescribed. Please follow-up with your PCP in the next 3 days. Hematuria/blood in urine should start to resolve within the next 2-3 days. Problem Qualifiers Primary Impression: UTI (urinary tract infection) Urinary tract infection type: acute cystitis Hematuria presence: with hematuria Qualified Codes: N30.01 - Acute cystitis with hematuria Additional Impression: Hematuria Hematuria type: unspecified type Qualified Codes: R31.9 - Hematuria, unspecified
== END 2017-06-24 18:28 | disposition home or self-care (01) ==
LOC: C.EDB 14:47
DX: N30.01 Acute cystitis with hematuria (principal); R31.9 Hematuria, unspecified; I48.91 Unspecified atrial fibrillation; Z87.442 Personal history of urinary calculi; Z79.01 Long term (current) use of anticoagulants; Z87.891 Personal history of nicotine dependence